=== PATIENT | male | born 1950 | race Caucasian/White ===

== ENCOUNTER 2024-11-24 14:55 | Outpatient (REF) | payer MEDICARE, SELFPAY ==
--- OUTSIDE RECORDS SUMMARY | 2024-11-24 17:09 | XMS_ITS | Encounter Summary ---
Author Organization [facility] Address [address] [place] [address] Care Team Providers Care Mortgage Processing Clerk Name Role Phone Pcp, No Primary Care Provider Unavailabl e Carrier, Yael BHAKTA Unavailable [phone] Reason for Visit * Reason Comments Other Second Opinion Encounter Details Date Type Department Care Team ([facility] Contact Info) Description 04/26/2024 Telephone [facility] Urologic Surgery [address] [phone] Don Zhang MD [address] [address] Other (Second Opinion) Social History Tobacco Use Types Packs/Day Years Used Date Smoking Tobacco: Never Smokeless Tobacco: Never Alcohol Use Standard Drinks/Week Comments Yes 1 (1 standard drink = 0.6 oz pur e alcohol) 2x/week AUDIT-C Answer Date Recorded Q1: How often do you have a drink containing alc ohol? 2-3 times a week 12/10/2022 Q2: How many drinks containi ng alcohol do you have on a typical day when you are drinking? 1 or 2 12/10/2022 Q3: How often do you have si x or more drinks on one occasion? Never 12/10/2022 Overall Financial Resource Strain (CARDIA) Answe r Date Recorded How hard is it for you to pa y for the very basics like food, housing, medical care, and heating? Not hard at all 05/05/2023 PHQ-2 Answer Date Recorded PHQ-2 Total Score 0 01/01/2023 Hunger Vital Sign Answer Date Recorded Within the past 12 months, y ou worried that your food would run out before you got the money to buy more. Never true 05/05/20 23 Within the past 12 months, t he food you bought just didn't last and you didn't have money to get more. Never true 05/05/2023 PRAPARE - Transportation Answer Date Re corded In the past 12 months, has l ack of transportation kept you from medical appointments or from getting medications? No 04/18 In the past 12 months, has l ack of transportation kept you from meetings, work, or from getting things needed for daily living? No 05/05/2023 Housing Stability Vital Sign Answer Aditya e Recorded In the last 12 months, was t here a time when you were not able to pay the mortgage or rent on time? No 05/05/2023 In the last 12 months, how many places have you lived? 1 05/05/2023 In the last 12 months, was t here a time when you did not have a steady place to sleep or slept in a nursing home (including now)? No 05/05/2023 Sex and Gender Information Value Date Recorded Sex Assigned at Male 10/08/2022 11:43 AM EST Gender Identity Male 10/08/2022 11:43 AM EST Sexual Orientation Heterosexual (straight) 10/08 11:43 AM EST documented as of this encounter Miscellaneous Notes * Telephone Encounter - Nathaniel Hills - 04/26/2024 9:18 AM EDT Patient calling to see if he can set up a second opinion regarding his care of frequent UTIs He wasa patient of Tamar Tobars and Dr. Juarezs but has since moved to [place]. Scheduled him with Kelli Peralta in the [place] office on 04/29/24 at 12:30. He is going to have his current urologist send medical records to the [place] office. documented in this encounter Plan of Treatment Not on file documented as of this encounter Visit Diagnoses Not on filedocumented in this encounter Care Teams Mortgage Processing Clerk Relationship Specialty Start Date End Date Pcp, No [address] [place] [address] PCP - General 05/02/23 Carrier, LIVIA Conley [address] [address] Oncology Nurse Navigator 05/05/23 documented as of this encounter
--- OUTSIDE RECORDS SUMMARY | 2024-11-24 17:09 | XMS_ITS | Encounter Summary ---
Author Organization [facility] Address [address] [place] [address] Care Team Providers Care Pattern Painter Name Role Phone Stalin Dupree MD Primary Care Provider [phone] Pcp, No Primary Care Provider Unavailabl Yael Fregoso RN Unavailable [phone] Encounter Details Date Type Department Care Team (Late st Contact Info) Description 07/09/2022 Scanned Document [address] [phone] Stalin Dupree MD [address] [place] [address] Social History Tobacco Use Types Packs/Day Years Used Date Smoking Tobacco: Never Assessed Sex and Gender Information Value Date Recorded Sex Assigned at Male 10/08/2022 11:43 AM EST Gender Identity Male 10/08/2022 11:43 AM EST Sexual Orientation Heterosexual (straight) 10/08 11:43 AM EST documented as of this encounter Plan of Treatment Not on file documented as of this encounter Visit Diagnoses Not on filedocumented in this encounter Care Teams Pattern Painter Relationship Specialty Start Date End Date Stalin Dupree MD [address] [place] [address] PCP - General Internal Medicine 08/15/22 05/01/23 Pcp, No [address] [place] [address] PCP - General 05/02/23 Yael Islas RN [address] [address] Oncology Nurse Navigator 05/05/23 documented as of this encounter
--- OUTSIDE RECORDS SUMMARY | 2024-11-24 17:09 | XMS_ITS | Clinical Summary ---
Author Organization [facility] Address [address] [place] [address] Phone Care Team Providers Care Door To Door Selling Agent Name Role Phone Nathaniel Yin MD Primary Care Provider [phone] Allergies Active Allergy Reactions Criticality Noted Date Comments Atorvastatin Liver function tests abnormal Medium 07/28/2024 Milk Containing Products (Dairy) Low 07/28/2024 Medications aspirin 81 mg EC tablet Take 1 tablet (81 mg total) by mouth 1 (one) time each day. 11/08/2022 Active metoprolol succinate (TOPROL-XL) 25 mg 24 hr tablet Take 1 tablet (25 mg total) by mouth 1 (one) time each day. 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 Gross hematuria 07/27/2024 Idiopathic hydronephrosis 07/27/2024 Nephrolithiasis 07/27/2024 Prostate cancer 01/01/2023 Encounters Date Type Department Care Team Description 09/22/2024 Telephone [facility] [address] [place] [phone] Nathaniel Alba MD watchman/ blood thinner (Watchman/ blood thinner ) 09/17/2024 8:00 AM EST Office Visit [facility] [address] [place] [address] José Russell PA Irradiation cystitis with hematuria (Primary Dx); Prostate cancer ([facility]) 09/16/2024 8:00 AM EST Office Visit [facility] [address] [place] [phone] Carlos La MD Irradiation cystitis with hematuria (Primary Dx); Prostate cancer ([facility]) 09/15/2024 8:00 AM EST Office Visit [facility] [address] [place] [phone] José Russell PA Irradiation cystitis with hematuria (Primary Dx); Prostate cancer ([facility]) 09/14/2024 8:00 AM EST Office Visit [facility] [address] [place] [phone] José Russell PA Irradiation cystitis with hematuria (Primary Dx); Prostate cancer ([facility]) 09/13/2024 8:00 AM EST Office Visit [facility] [address] [place] [phone] Carlos La MD Irradiation cystitis with hematuria (Primary Dx); Prostate cancer ([facility]) 09/10/2024 8:00 AM EST Office Visit [facility] [address] [place] [phone] José Russell PA Irradiation cystitis with hematuria (Primary Dx); Prostate cancer ([facility]) 09/09/2024 8:00 AM EST Office Visit [facility] [address] [place] [phone] José Russell PA Irradiation cystitis with hematuria (Primary Dx); Prostate cancer ([facility]) 09/08/2024 8:00 AM EST Office Visit [facility] [address] [place] [phone] José Russell PA Irradiation cystitis with hematuria (Primary Dx); Prostate cancer ([facility]) 09/07/2024 8:00 AM EST Office Visit [facility] [address] [place] [phone] José Russell PA Irradiation cystitis with hematuria (Primary Dx); Prostate cancer ([facility]) 09/06/2024 8:00 AM EST Office Visit [facility] [address] [place] [phone] José Russell PA Irradiation cystitis with hematuria (Primary Dx); Prostate cancer ([facility]) 09/03/2024 8:00 AM EST Office Visit [facility] [address] [place] [phone] Carlos La MD Irradiation cystitis with hematuria (Primary Dx); Prostate cancer ([facility]) 09/02/2024 8:00 AM EST Office Visit [facility] [address] [place] [phone] Carlos La MD Irradiation cystitis with hematuria (Primary Dx); Prostate cancer ([facility]) 09/01/2024 8:00 AM EST Office Visit [facility] [address] [place] [phone] José Russell PA Irradiation cystitis with hematuria (Primary Dx); Prostate cancer ([facility]) 08/31/2024 8:00 AM EST Office Visit [facility] [address] [place] [phone] José Russell PA Irradiation cystitis with hematuria (Primary Dx); Prostate cancer ([facility]) 08/30/2024 8:00 AM EST Office Visit [facility] [address] [place] [phone] José Russell PA Irradiation cystitis with hematuria (Primary Dx); Prostate cancer ([facility]) 08/27/2024 8:00 AM EST Office Visit [facility] [address] [place] [phone] José Russell PA Irradiation cystitis with hematuria (Primary Dx); Prostate cancer ([facility]) 08/26/2024 8:00 AM EST Office Visit [facility] [address] [place] [address] José Russell PA Irradiation cystitis with hematuria (Primary Dx); Prostate cancer ([facility]) from Last 3 Months Surgical History Surgery Date Site/Laterality Comments MITRAL VALVE REPLACEMENT repair per pt from prolaps PROSTATECTOMY LITHOTRIPSY CYSTOSCOPY W/ URETERAL STENT PLACEMENT Medical History Medical History Date Comments CKD (chronic kidney disease) DX: CKD (chronic kidney disease) Adhd DX:ADHD Coronary artery disease 07/27/2024 Heart valve disease 07/27/2024 Hypertension 07/27/2024 Raynaud's syndrome 07/27/2024 Chronic kidney disease 07/27/2024 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 Gross hematuria 07/27/2024 Hydronephrosis with ureteral stricture Nephrolithiasis 07/27/2024 Prostate cancer ([facility]) Social History Tobacco Use Types Packs/Day Years Used Date Smoking Tobacco: Never Smokeless Tobacco: Never Alcohol Use Standard Drinks/Week Comments Not Currently 0 (1 standard drink = 0.6 oz pur e alcohol) Sex and Gender Information Value Date Recorded Sex Assigned at Not on file Legal Sex Male 11:18 PM EST Gender Identity Not on file Sexual Orientation Not on file Obstetrics History Last Filed Vital Signs Vital Sign Reading Time Taken Comments Blood Pressure 139/77 07/28/2024 9:39 AM EST Pulse 75 07/28/2024 9:39 AM EST Temperature 36.8 ??C (98.2 ??F) 07/28/2024 9:39 AM ES T Respiratory Rate 16 07/28/2024 9:39 AM EST Oxygen Saturation 100% 07/28/2024 9:39 AM EST Inhaled Oxygen Concentration - - Weight 68 kg (150 lb) 07/28/2024 9:39 AM EST Height 172.7 cm (5' 8 ) 07/28/2024 9:39 AM EST Body Mass Index 22.81 07/28/2024 9:39 AM EST Plan of Treatment Upcoming Encounters Date Type Department Care Team (Late st Contact Info) Description 12/21/2024 7:40 AM EDT Office Visit [facility] [address] [place] [phone] Belkis Diaz, SANDRA [address] [place] [address] [address] [place], [place] [phone] 07/30/2025 Telephone [facility] [address] [place] [address] Nathaniel Yin MD [address] [place] [address] [address] [place] [address] Medical Records Health Maintenance Due Date Last Done Comments Pneumococcal Vaccine: 50+ Years (1 of 2 - PCV) 1969 Colorectal Cancer Screening: Colonoscopy 07/28/2022 Depression Screening 07/28/2022 Hepatitis C Screening 07/28/2022 Medicare Annual Wellness Visit 07/28/2022 Social Influencers of Health Screening 07/28/2022 Hypertension/CHF/CAD Annual BMP Blood Test 01/03/2024 01/02/2023, 12/17/2022 Cholesterol Screening (Lipid Panel) 05/24/2024 05/24/2019 Falls Risk Assessment 07/28/2025 07/28/2024 DTaP,Tdap,and Td Vaccines (3 - Td or Tdap) 01/11/2031 01/11/2021, 08/18/1999 Zoster Vaccines Completed 08/24/2018, 05/18/2018 RSV Immunization Adult Patients Completed 05/14/2023 COVID-19 Vaccine Completed 04/28/2024, , 05/01/2022, Additional history exists Influenza Vaccine Completed 04/28/2024, , 05/01/2022, Additional history exists HIB Vaccines Aged Out No longer eligi ble based on patient's age to complete this topic HPV Vaccines Aged Out No longer eligi ble based on patient's age to complete this topic Hepatitis A Vaccines Aged Out No long er eligible based on patient's age to complete this topic Hepatitis B Vaccines Aged Out No long er eligible based on patient's age to complete this topic IPV Vaccines Aged Out No longer eligi ble based on patient's age to complete this topic MMR Vaccines Aged Out No longer eligi ble based on patient's age to complete this topic Meningococcal ACWY Vaccine Aged Out N o longer eligible based on patient's age to complete this topic Meningococcal B Vaccine Aged Out No l onger eligible based on patient's age to complete this topic RSV Immunization Patients Under 20 months Aged Out No longer eligible based on patient's age to complete this topic Varicella Vaccines Aged Out No longer eligible based on patient's age to complete this topic Goals Goal Patient Goal Type Associated Problems Recent Progress Patient-Stated? Author Decrease Wound Volume by X% by date (in notes) Care Plan Impaired Tissue Anastasiia Brambila RN Patient and Caregiver Understand Wound Care Education Care Plan Impaired Tissue Anastasiia Brambila RN Wound volume breakdown reduced by X% by week 4 Care Plan Impaired Tissue Anastasiia Brambila RN Wound volume breakdown reduced by X% by week 8 Care Plan Impaired Tissue Anastasiia Brambila RN Wound volume breakdown reduced by X% by week 12 Care Plan Impaired Tissue Anastasiia Brambila RN Quit using tobacco (cigarettes, smokeless, etc) Care Plan Education needed on impact of smoking on wound Anastasiia Brambila RN Reduce tobacco use (cigarettes, smokeless, etc) Care Plan Education needed on impact of smoking on wound Anastasiia Brambila RN Decrease Wound Volume by X% by date (in notes) Care Plan Education needed on impact of smoking on wound Anastasiia Brambila RN Patient and Caregiver Understand Wound Care Education Care Plan Education needed related to ulceration/compr omised skin integrity. Anastasiia Brambila RN Patient will tolerate the hyperbaric oxygen therapy treatment Care Plan Anxiety related to feelings of confinement associated with the hyperbaric oxygen chamber Anastasiia Brambila RN Patient/caregiver verbalize understanding of HBO goals, rationale, and hazards Care Plan Anxiety related to knowledge deficit of hyperbaric oxygen therapy and treatment procedures Anasatsiia Brambila RN Patient will tolerate the internal climate of chamber Care Plan Discomfort related to temperature humidity changes inside hyperbaric chamber Anastasiia Brambila RN Prevention of barotraumas during HBO treatment Care Plan Potential for barotraumas to ears, sinuses, teeth, lungs or cerebral gas embolism related to changes in atmospheric pressure inside hyperbaric oxygen chamber Anastasiia Brambila RN Signs and symptoms of seizure will be recognized and promptly addressed. Seizing patients will suffer no harm Care Plan Potential for oxygen toxicity seizures related to delivery of 100% oxygen at an increase atmospheric pressure Anastasiia Brambila RN Signs and symptoms of seizure will be recognized and promptly addressed. Seizing patients will suffer no harm Care Plan Potential for pulmonary oxygen toxicity related to delivery of 100% oxygen at an increased atmospheric pressure No Anastasiia Boone RN Procedures Procedure Name Priority Date/Time Associated Diagnosis Comments POCT GLUCOSE BLOOD Routine 08/30/2024 11 :09 AM EST from Last 3 Months Results * (ABNORMAL) POCT Glucose, blood (08/30/2024 11:09 AM EST) [facility] Signature Glucose POCT 177(H) 70 - 100 mg/dL 08/30/2024 11:10 AM EST [facility] Blood Capillary blood specimen / Unknown 08/30/2024 11:09 AM EST 08/30/2024 2:39 PM EST us José DONATO LAB POINT OF CARE T EST DOCKED DEVICE UNSOLICITED RESULTS Final Result [facility] [address] [place] [address], [place] [phone] from Last 3 Months Additional Health Concerns Active Problems Noted Date Diagnosed Date Impaired Tissue 07/28/2024 Education needed on impact of smoking on wound 1 09/28/2023 Education needed related to ulceration/compromised skin integrity. 07/28/2024 Anxiety related to feelings of confinement associated with the hyperbaric oxygen chamber 07/28/2024 Anxiety related to knowledge deficit of hyperbaric oxygen therapy and treatment procedures 07/28/2024 Discomfort related to temper ature humidity changes inside hyperbaric chamber 07/28/2024 Potential for barotraumas to ears, sinuses, teeth, lungs or cerebral gas embolism related to changes in atmospheric pressure inside hyperbaric oxygen chamber 07/28/2024 Potential for oxygen toxicit y seizures related to delivery of 100% oxygen at an increase atmospheric pressure 07/28/2024 Potential for pulmonary oxyg en toxicity related to delivery of 100% oxygen at an increased atmospheric pressure 07/28/2024 Insurance [employer] Care Teams Door To Door Selling Agent Relationship Specialty Start Date End Date Nathaniel Yin MD [address] [place] [address] [address] [place] [phone] PCP - General Internal Medicine 08/04/24
--- OUTSIDE RECORDS SUMMARY | 2024-11-24 17:09 | XMS_ITS | Encounter Summary ---
Author Organization [facility] Address [address] [place] [address] Care Team Providers Care Global Sourcing Manager Name Role Phone Pcp, No Primary Care Provider Unavailabl e Carrier, Yael BHAKTA Unavailable [phone] Encounter Details Date Type Department Care Team ([facility] st Contact Info) Description 05/29/2023 Scanned Document [facility] Urologic Surgery [place] [address] [address] Jyotsna Barrios MD [address] [place] [phone] Social History Tobacco Use Types Packs/Day Years [...] money to buy more. Never true 05/05/20 Within the past 12 months, t he [...] place to sleep or slept in a alf (including now)? No 05/05/2023 Sex and Gender Information Value Date Recorded Sex Assigned at Male 10/08/2022 11:43 AM EST Gender Identity Male 10/08/2022 11:43 AM EST Sexual Orientation Heterosexual (straight) 10/08 11:43 AM EST documented as of this encounter Plan of Treatment Not on file documented as of this encounter Visit Diagnoses Not on filedocumented in this encounter Care Teams Global Sourcing Manager Relationship Specialty Start Date End Date Pcp, No [address] [place] [address] PCP - General 05/02/23 Yael Islas RN [address] [address] Oncology Nurse Navigator 05/05/23 documented as of this encounter
--- OUTSIDE RECORDS SUMMARY | 2024-11-24 17:09 | XMS_ITS | Encounter Summary ---
Author Organization [facility] Address [address] [place] [address] Care Team Providers Care Senior Warehouse Clerk Name Role Phone Stalin Dupree MD Primary Care Provider [phone] Pcp, No Primary Care Provider Unavailabl e Yael Islas RN Unavailable [phone] Encounter Details Date Type Department Care Team (Late st Contact Info) Description 07/09/2022 Scanned Document [facility] [place] Urologic Surgery [address] [address] Stalin Dupree MD [address] [place] [phone] Social History Tobacco Use Types Packs/Day Years [...] on filedocumented in this encounter Care Teams Senior Warehouse Clerk Relationship Specialty Start Date End Date Stalin Dupree MD [address] [place] [address] PCP - General Internal Medicine 08/15/22 05/01/23 Pcp, No [address] [place] [address] PCP - General 05/02/23 Yael Islas RN [address] [address] Oncology Nurse Navigator 05/05/23 documented as of this encounter
--- OUTSIDE RECORDS SUMMARY | 2024-11-24 17:09 | XMS_ITS | Clinical Summary ---
Author Organization [facility] Address [address] [place] [address] Care Team Providers Care Record Keeper Name Role Phone Unavailable Primary Care Provider Unavailabl e Social History Tobacco Use Types Packs/Day Years Used Date Smoking Tobacco: Never Assessed Sex and Gender Information Value Date Recorded Sex Assigned at Not on file Gender Identity Not on file Sexual Orientation Not on file Plan of Treatment Health Maintenance Due Date Last Done Comments Hepatitis C Screening 1950 COVID-19 Vaccine (#1) [birth year]20/1951 Depression Screening 1962 Preventative Health Evaluation 1968 DTap / Tdap / Td (1 - Tdap) 1969 Colon Cancer Screening (Colonoscopy) 12/19/1995 Shingrix-Zoster Vaccine (1 of 2) 2000 Fall Risk Assessment 12/19/2015 Pneumococcal Vaccine (1 of 1 - PCV) 12/19/2015 Influenza Vaccine (#1) 2024 RSV Adult > 60+ Yrs or Pregn ant (1 - 1-dose 75+ series) 2025 Hepatitis B Vaccines Aged Out No long er eligible based on patient's age to complete this topic RSV Ped < 20 months Aged Out No longe r eligible based on patient's age to complete this topic
--- OUTSIDE RECORDS SUMMARY | 2024-11-24 17:09 | XMS_ITS | Encounter Summary ---
Author Organization [facility] Address [address] [place] [address] Care Team Providers Care Queen Producer Name Role Phone Stalin Dupree MD Primary Care Provider [phone] Pcp, No Primary Care Provider Unavailabl e Yael Islas RN Unavailable [phone] Encounter Details Date Type Department Care Team (Late st Contact Info) Description 06/04/2022 Scanned Document [facility] Urologic Surgery [address] [address] Stalin Dupree MD [address] [place] [phone] Social History Tobacco Use Types Packs/Day Years [...] on filedocumented in this encounter Care Teams Queen Producer Relationship Specialty Start Date End Date Stalin Dupree MD [address] [place] [phone] PCP - General Internal Medicine 08/15/22 05/01/23 Pcp, No [address] [place] [address] PCP - General 05/02/23 Yael Islas RN [address] [address] Oncology Nurse Navigator 05/05/23 documented as of this encounter
--- OUTSIDE RECORDS SUMMARY | 2024-11-24 17:09 | XMS_ITS ---
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 Past Plans No past plan information found. Radiation Treatments * No radiation treatments are documented for this patient in [facility]. Treatments may have been administered in another system. Lifetime Dose Tracking * Chemical Lifetime Dose Automatic Entry Manual Entr y Fluoro Time 0.1 minutes 0.1 minutes 0 minutes Air Kerma 1 mGy 1 mGy 0 mGy
--- OUTSIDE RECORDS SUMMARY | 2024-11-24 17:09 | XMS_ITS | Encounter Summary ---
Author Organization [facility] Address [address] [place] [address] Care Team Providers Care Polysom Tech Name Role Phone Stalin Dupree MD Primary Care Provider [phone] Pcp, No Primary Care Provider Unavailabl e Yael Islas RN Unavailable [phone] Encounter Details Date Type Department Care Team (Late st Contact Info) Description 08/09/2022 Scanned Document [facility] Urologic Surgery [address] [place] [phone] Arnaud Cho MD [address] [facility] [address] [place] [address] Social History Tobacco Use Types Packs/Day Years [...] on filedocumented in this encounter Care Teams Polysom Tech Relationship Specialty Start Date End Date Stalin Dupree MD [address] [place] [address] PCP - General Internal Medicine 08/15/22 05/01/23 Pcp, No [address] [place] [address] PCP - General 05/02/23 Yael Islas RN [address] [address] Oncology Nurse Navigator 05/05/23 documented as of this encounter
--- OUTSIDE RECORDS SUMMARY | 2024-11-24 17:09 | XMS_ITS | Clinical Summary ---
Author Organization [facility] Address [address] [place] [address] Care Team Providers Care Financial Systems Manager Name Role Phone Pcp, No Primary Care Provider Unavailabl e Carrier, Yael BHAKTA Unavailable [phone] Allergies No known active allergies Medications Medication Sig Dispensed Refills Start Date End Date Status docusate sodium (COLACE) 100 MG capsuleIndications:P rostate cancer (HCC) Take 1 capsule (100 mg total) by mouth 2 (two) times a day as needed for constipation. 60 capsule 01/02/2023 Active magnesium oxide 400 (240 Mg) MG Tab tablet Take 1 tablet (400 mg total) by mouth daily. Take 2 hours apart from other medications; take with food Active ciprofloxacin (CIPRO) 500 MG/5ML (10%) suspension Take by mouth 2 (two) times a day. Active metoPROLOL SUCCINATE (TOPROL-XL) 50 MG 24 hr tablet Take 1 tablet (50 mg total) by mouth daily. Active apixaban (ELIQUIS) 5 MG tablet Take 1 tablet (5 mg total) by mouth 2 (two) times a day. Active Active Problems Problem Noted Date Diagnosed Date Prostate cancer 01/01/2023 Hypertension Assessment & Plan (12/17/2022 11:43 AM EDT): BP Today: 124/60. Well-controlled by lifestyle and medication. Continue current medication regimen as prescribed. Patient to follow up with provider for continued management of HTN as previously directed. History of kidney stones Assessment & Plan (12/17/2022 11:45 AM EDT): Patient reports he has a low grade ache on his left flank which he discussed with his urologist but at this time there will not be further evaluation and intervention. Patient reports a history of kidney stones every two to three years. Patient is currently not taking any medications or supplements for this. Patient is followed by Dr. Arnaud Liu with urology. History of mitral valve prolapse Assessment & Plan (12/17/2022 11:48 AM EDT): Patient reports he underwent MVP repair at [facility] in 2004. Patient reports occasional swelling in his lower extremities mostly noted in the evening and was previously told this is related to his Amlodipine. Patient denies shortness of breath and/or dyspnea on exertion. Patient is followed by Dr. Shanks with cardiology. Other hyperlipidemia Assessment & Plan (12/17/2022 11:56 AM EDT): Patient reports that he was told he has some plaque in one of his arteries noted on a LHC. Patient did not tolerate statin therapy. Statin precipitate elevated LFT's requiring patient to under go a liver biopsy which proved it was in relation to statin therapy. Patient did try red yeast rice but didn't tolerate due to night sweats. Patient denies chest pain, SOB, and GREGORIO. Patient to follow up with their provider for continued management of HLD as previously directed. Will obtain most recent EKG and note from cardiology and will request risk stratification. Family History Medical History Relation Name Comments Alcohol abuse Father Heart attack Father Post-traumatic stress disorder Father Tobacco Use Father Alzheimer's disease Mother Relation Name Status Comments Father Mother Social History Tobacco Use Types Packs/Day Years Used Date Smoking Tobacco: Never Smokeless Tobacco: Never Tobacco Cessation:Counseling Given: Not Answered Alcohol Use Standard Drinks/Week Comments Yes 1 [...] place to sleep or slept in a care home (including now)? No 05/05/2023 Sex and Gender Information Value Date Recorded Sex Assigned at Male 10/08/2022 11:43 AM EST Gender Identity Male 10/08/2022 11:43 AM EST Sexual Orientation Heterosexual (straight) 10/08 11:43 AM EST Last Filed Vital Signs Vital Sign Reading Time Taken Comments Blood Pressure 124/54 01/09/2023 10:04 AM EDT Pulse 73 01/17/2023 9:55 AM EDT Temperature 37.7 ??C (99.9 ??F) 01/02/2023 7:54 AM ED T Respiratory Rate 18 01/09/2023 10:04 AM EDT Oxygen Saturation 99% 01/17/2023 9:55 AM EDT Inhaled Oxygen Concentration - - Weight 70.3 kg (155 lb) 04/29/2024 12:17 PM EDT per pt Height 172.7 cm (5' 8 ) 04/29/2024 12:17 PM EDT per pt Body Mass Index 23.57 04/29/2024 12:17 PM EDT Plan of Treatment Health Maintenance Due Date Last Done Comments Hepatitis C Virus Screening 1950 COVID-19 Vaccine (#1) 12/19/1955 DTaP/Tdap/Td Vaccines (1 - Tdap) 1969 Pneumococcal Vaccines 50+ (1 of 2 - PCV) 1969 Zoster (Shingles) Vaccine (1 of 2) 1969 Colonoscopy 12/19/1995 RSV Vaccine 60 years and old er and Patients (1 - Risk 60-74 years 1-dose series) 2010 Influenza Vaccine 03/18/2024 08/26/2005 Hepatitis B Vaccines Aged Out No long er eligible based on patient's age to complete this topic Advance Directives * Full Code (Latest Code Status on File) Date Activated Date Inactivated Comments 01/01/2023 2:24 PM * Full Code Date Activated Date Inactivated Comments 01/01/2023 6:51 AM 01/01/2023 2:24 PM Care Teams Financial Systems Manager Relationship Specialty Start Date End Date Pcp, No [address] [place] [address] PCP - General 05/02/23 Yael Islas, LIVIA [address] [address] Oncology Nurse Navigator 05/05/23
--- OUTSIDE RECORDS SUMMARY | 2024-11-24 17:09 | XMS_ITS | Encounter Summary ---
Author Organization [facility] Address [address] [place] [address] Care Team Providers Care Engineering Leader Name Role Phone Stalin Dupree MD Primary Care Provider [phone] Pcp, No Primary Care Provider Unavailabl e Yael Islas RN Unavailable [phone] Encounter Details Date Type Department Care Team (Late st Contact Info) Description 03/27/[address] [facility] Urologic Surgery [address] [id number] Stalin Dupree MD [address] [place] [id number] Social History Tobacco Use Types Packs/Day Years [...] on filedocumented in this encounter Care Teams Engineering Leader Relationship Specialty Start Date End Date Stalin Dupere MD [address] [place] [address] PCP - General Internal Medicine 08/15/22 05/01/23 Pcp, No [address] [place] [address] PCP - General 05/02/23 Yael Islas RN [address] [address] Oncology Nurse Navigator 05/05/23 documented as of this encounter
--- OUTSIDE RECORDS SUMMARY | 2024-11-24 17:09 | XMS_ITS | Encounter Summary ---
Author Organization [facility] Address [address] [place] [address] Care Team Providers Care Arcgis Developer Name Role Phone Stalin Dupree MD Primary Care Provider [phone] Pcp, No Primary Care Provider Unavailabl e Yael Islas RN Unavailable [phone] Encounter Details Date Type Department Care Team (Late st Contact Info) Description 05/06/2022 Scanned Document [facility] Urologic Surgery [address] [id number] Stalin Dupree MD [address] [place] [id number] Social History Tobacco Use Types Packs/Day Years [...] on filedocumented in this encounter Care Teams Arcgis Developer Relationship Specialty Start Date End Date Stalin Dupree MD [address] [place] [address] PCP - General Internal Medicine 08/15/22 05/01/23 Pcp, No [address] [place] [address] PCP - General 05/02/23 Yael Islas RN [address] [address] Oncology Nurse Navigator 05/05/23 documented as of this encounter
--- OUTSIDE RECORDS SUMMARY | 2024-11-24 17:09 | XMS_ITS | Encounter Summary ---
Author Organization [facility] Address [address] [place] [address] Care Team Providers Care Hoisting Pile Driving Engineer Name Role Phone Stalin Dupree MD Primary Care Provider [phone] Pcp, No Primary Care Provider Unavailabl e Carrier, Yael BHAKTA Unavailable [phone] Reason for Visit * Reason Comments Medical Complaint Encounter Details Date Type Department Care Team ([facility] Contact Info) Description 01/14/[address] [facility] Urologic Surgery [address] [id number] Don Zhang MD [address] [place] [address] Medical Complaint Social History Tobacco Use Types Packs/Day Years [...] care, and heating? Not hard at all 01/02/2023 PHQ-2 Answer Date Recorded PHQ-2 Total Score 0 01/01/2023 Hunger Vital Sign Answer Date Recorded Within the past 12 months, y ou worried that your food would run out before you got the money to buy more. Never true 01/03/20 23 Within the past 12 months, t he food you bought just didn't last and you didn't have money to get more. Never true 01/02/2023 PRAPARE - Transportation Answer Date Re corded In the past 12 months, has l ack of transportation kept you from medical appointments or from getting medications? No 12/16 In the past 12 months, has l ack of transportation kept you from meetings, work, or from getting things needed for daily living? No 01/02/2023 Housing Stability Vital Sign Answer Aditya e Recorded In the last 12 months, was t here a time when you were not able to pay the mortgage or rent on time? No 01/02/2023 In the last 12 months, how many places have you lived? 1 01/02/2023 In the last 12 months, was t here a time when you did not have a steady place to sleep or slept in a longterm (including now)? No 01/02/2023 Sex and Gender Information Value Date Recorded Sex Assigned at Male 10/08/2022 11:43 AM EST Gender Identity Male 10/08/2022 11:43 AM EST Sexual Orientation Heterosexual (straight) 10/08 11:43 AM EST COVID-19 Exposure Response Date Recorded In the last 10 days, have yo u been in contact with someone who was confirmed or suspected to have Coronavirus/COVID-19? No / Unsure 01/17/2023 9:54 AM EDT documented as of this encounter Miscellaneous Notes * Telephone Encounter - Zachary Mixon RN - 01/16/2023 10:06 AM EDT Krystin made Pt aware that he should measure the volumes of output collecting in his stoma bag. Please see alternate TE * Telephone Encounter - Don Zhang MD - 01/14/2023 1:02 PM EDT Got it, thanks. Any abdominal distension? 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 Provider made aware documented in this encounter Plan of Treatment Not on file documented as of this encounter Visit Diagnoses Not on filedocumented in this encounter Care Teams Hoisting Pile Driving Engineer Relationship Specialty Start Date End Date Stalin Dupree MD [address] [place] [address] PCP - General Internal Medicine 08/15/22 05/01/23 Pcp, No [address] [place] [address] PCP - General 05/02/23 Yael Islas RN [address] [address] Oncology Nurse Navigator 05/05/23 documented as of this encounter
--- OUTSIDE RECORDS SUMMARY | 2024-11-24 17:09 | XMS_ITS | Encounter Summary ---
Author Organization [facility] Address [address] [place] [address] Care Team Providers Care Generating Plant Superintendent Name Role Phone Stalin Dupree MD Primary Care Provider Pcp, No Primary Care Provider Unavailabl e Yael Islas RN Unavailable [phone] Encounter Details Date Type Department Care Team (Late st Contact Info) Description 05/23/2022 Scanned Document [facility] Urologic Surgery [address] [phone] Stalin Dupree MD [address] [place] [address] Social History Tobacco Use Types Packs/Day Years [...] on filedocumented in this encounter Care Teams Generating Plant Superintendent Relationship Specialty Start Date End Date Stalin Dupree MD [address] [place] [address] PCP - General Internal Medicine 08/15/22 05/01/23 Pcp, No [address] [place] [address] PCP - General 05/02/23 Yael Islas RN [address] [address] Oncology Nurse Navigator 05/05/23 documented as of this encounter
--- OUTSIDE RECORDS SUMMARY | 2024-11-24 17:09 | XMS_ITS ---
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 Author Decrease Wound Volume by X% by date (in notes) Care Plan Impaired Tissue Anastasiia Brambila RN Patient and Caregiver Understand Wound Care Education Care Plan Impaired Tissue Anastasiia Brambila RN Wound volume breakdown reduced by X% by week 4 Care Plan Impaired Tissue Anastasiia Bramibla RN Wound volume breakdown reduced by X% [...] of hyperbaric oxygen therapy and treatment procedures Anastasiia Brambila RN Patient will tolerate the internal [...] 100% oxygen at an increased atmospheric pressure Anastasiia Brambila RN Interventions Care Plan Interventions Intervention Entry Date Outcome Assess for signs and symptoms related to adverse events, including but not limited to confinement anxiety, pneumothorax, oxygen toxicity and barotrauma 07/28/2024 Administer the correct therapeutic gas delivery based on patient's needs and limitations, per physician order 07/28/2024 Administer a ten (10) minute air break for patient if signs and symptoms of seizure appear and notify the hyperbaric physician 07/28/2024 Administer a five (5) minute air break for patient signs and symptoms of seizure appear and notify the hyperbaric physician 07/28/2024 Assess for signs and symptoms related to adverse events, including but not limited to confinement anxiety, pneumothorax, oxygen toxicity and barotrauma 07/28/2024 Administer the correct therapeutic gas delivery based on patient's needs and limitations, per physician order 07/28/2024 Administer a ten (10) minute air break for patient if signs and symptoms of seizure appear and notify the hyperbaric physician 07/28/2024 Administer a five (5) minute air break for patient signs and symptoms of seizure appear and notify the hyperbaric physician 07/28/2024 Implement protocols to decrease risk of pneumothorax in high risk patients 07/28/2024 Administer decongestants, per physician orders, prior to HBO 07/28/2024 Assess patient's knowledge and expectations regarding hyperbaric medicine and provide education related to the hyperbaric environment, goals of treatment and prevention of adverse events 07/28/2024 Assess for signs and symptoms related to adverse events, including but not limited to confinement anxiety, pneumothorax, oxygen toxicity and barotrauma 07/28/2024 Administer the correct therapeutic gas delivery based on patient's needs and limitations, per physician order 07/28/2024 Assess and provide for patient's comfort related to hyperbaric environment and equalization of middle ear 07/28/2024 Assess for signs and symptoms related to adverse events, including but not limited to confinement anxiety, pneumothorax, oxygen toxicity and barotrauma 07/28/2024 Assess patient's knowledge and expectations regarding hyperbaric medicine and provide education related to the hyperbaric environment, goals of treatment and prevention of adverse events 07/28/2024 Assess patient for any history of confinement anxiety 07/28/2024 Assess for signs and symptoms related to adverse events, including but not limited to confinement anxiety, pneumothorax, oxygen toxicity and barotrauma 07/28/2024 Provide caregiver with wound care procedure information 07/28/2024 Educate caregiver on proper wound care procedures 07/28/2024 Give provider list of wound care supplies 07/28/2024 Refill wound care supplies 07/28/2024 Send Wound Care Supplies 07/28/2024 Give provider list of wound care supplies 07/28/2024 Refill wound care supplies 07/28/2024 Send Wound Care Supplies 07/28/2024 Provide caregiver with wound care procedure information 07/28/2024 Educate caregiver on proper wound care procedures 07/28/2024 Document patient eligibility for HBO 07/28/2024 Assess patient for HBO treatment 07/28/2024 Record wound depth 07/28/2024 Record total wound area 07/28/2024 Measure wound progress 07/28/2024 Create an action plan identifying patient strengths and supports 07/28/2024 Establish quit date with patient 07/28/2024 Discuss prior cessation attempts 07/28/2024 Discuss preferred method of cessation and plan 07/28/2024 Discuss barriers to smoking cessation 07/28/2024 Discuss smoking status with patient 07/28/2024 Create an action plan identifying patient strengths and supports 07/28/2024 Establish quit date with patient 07/28/2024 Discuss prior cessation attempts 07/28/2024 Discuss preferred method of cessation and plan 07/28/2024 Discuss barriers to smoking cessation 07/28/2024 Discuss smoking status with patient 07/28/2024 Provide caregiver with wound care procedure information 07/28/2024 Educate caregiver on proper wound care procedures 07/28/2024 Document patient eligibility for HBO 07/28/2024 Assess patient for HBO treatment 07/28/2024 Record wound depth 07/28/2024 Record total wound area 07/28/2024 Measure wound progress 07/28/2024 Provide caregiver with wound care procedure information 07/28/2024 Educate caregiver on proper wound care procedures 07/28/2024 Document patient eligibility for HBO 07/28/2024 Assess patient for HBO treatment 07/28/2024 Record wound depth 07/28/2024 Record total wound area 07/28/2024 Measure wound progress 07/28/2024 Provide caregiver with wound care procedure information 07/28/2024 Educate caregiver on proper wound care procedures 07/28/2024 Document patient eligibility for HBO 07/28/2024 Assess patient for HBO treatment 07/28/2024 Record wound depth 07/28/2024 Record total wound area 07/28/2024 Measure wound progress 07/28/2024 Provide caregiver with wound care procedure information 07/28/2024 Educate caregiver on proper wound care procedures 07/28/2024 Give provider list of wound care supplies 07/28/2024 Refill wound care supplies 07/28/2024 Send Wound Care Supplies 07/28/2024 Give provider list of wound care supplies 07/28/2024 Refill wound care supplies 07/28/2024 Send Wound Care Supplies 07/28/2024 Provide caregiver with wound care procedure information 07/28/2024 Educate caregiver on proper wound care procedures 07/28/2024 Document patient eligibility for HBO 07/28/2024 Assess patient for HBO treatment 07/28/2024 Record wound depth 07/28/2024 Record total wound area 07/28/2024 Measure wound progress 07/28/2024 Related Goals and Interventions Goal Associated Intervent ions Decrease Wound Volume by X% by date (in notes) Give provider list of wound care supplie s; Refill wound care supplies; Send Wound Care Supplies; Provide caregiver with wound care procedure information; Educate caregiver on proper wound care procedures; Document patient eligibility for HBO; Assess patient for HBO treatment; Record wound depth; Record total wound area; Measure wound progress Patient and Caregiver Unders tand Wound Care Education Provide caregiver with wound care procedure information; Educate caregiver on proper wound care procedures; Give provider list of wound care supplies; Refill wound care supplies; Send Wound Care Supplies Wound volume breakdown reduc ed by X% by week 4 Provide caregiver with wound care procedure information; Educate caregiver on proper wound care procedures; Document patient eligibility for HBO; Assess patient for HBO treatment; Record wound depth; Record total wound area; Measure wound progress Wound volume breakdown reduc ed by X% by week 8 Provide caregiver with wound care procedure information; Educate caregiver on proper wound care procedures; Document patient eligibility for HBO; Assess patient for HBO treatment; Record wound depth; Record total wound area; Measure wound progress Wound volume breakdown reduc ed by X% by week 12 Provide caregiver with wound care procedure information; Educate caregiver on proper wound care procedures; Document patient eligibility for HBO; Assess patient for HBO treatment; Record wound depth; Record total wound area; Measure wound progress Quit using tobacco (cigarett es, smokeless, etc) Create an action plan identifying patien t strengths and supports; Establish quit date with patient; Discuss prior cessation attempts; Discuss preferred method of cessation and plan; Discuss barriers to smoking cessation; Discuss smoking status with patient Reduce tobacco use (cigarett es, smokeless, etc) Create an action plan identifying patien t strengths and supports; Establish quit date with patient; Discuss prior cessation attempts; Discuss preferred method of cessation and plan; Discuss barriers to smoking cessation; Discuss smoking status with patient Decrease Wound Volume by X% by date (in notes) Give provider list of wound care supplie s; Refill wound care supplies; Send Wound Care Supplies; Provide caregiver with wound care procedure information; Educate caregiver on proper wound care procedures; Document patient eligibility for HBO; Assess patient for HBO treatment; Record wound depth; Record total wound area; Measure wound progress Patient and Caregiver Unders tand Wound Care Education Provide caregiver with wound care procedure information; Educate caregiver on proper wound care procedures; Give provider list of wound care supplies; Refill wound care supplies; Send Wound Care Supplies Patient will tolerate the hy perbaric oxygen therapy treatment Assess patient for any history of confinement anxiety; Assess for signs and symptoms related to adverse events, including but not limited to confinement anxiety, pneumothorax, oxygen toxicity and barotrauma Patient/caregiver verbalize understanding of HBO goals, rationale, and hazards Assess for signs and symptoms related to adverse events, including but not limited to confinement anxiety, pneumothorax, oxygen toxicity and barotrauma; Assess patient's knowledge and expectations regarding hyperbaric medicine and provide education related to the hyperbaric environment, goals of treatment and prevention of adverse events Patient will tolerate the in ternal climate of chamber Assess and provide for patient's comfort related to hyperbaric environment and equalization of middle ear Prevention of barotraumas du ring HBO treatment Implement protocols to decrease risk of pneumothorax in high risk patients; Administer decongestants, per physician orders, prior to HBO; Assess patient's knowledge and expectations regarding hyperbaric medicine and provide education related to the hyperbaric environment, goals of treatment and prevention of adverse events; Assess for signs and symptoms related to adverse events, including but not limited to confinement anxiety, pneumothorax, oxygen toxicity and barotrauma; Administer the correct therapeutic gas delivery based on patient's needs and limitations, per physician order Signs and symptoms of seizur e will be recognized and promptly addressed. Seizing patients will suffer no harm Assess for signs and symptoms related to adverse events, including but not limited to confinement anxiety, pneumothorax, oxygen toxicity and barotrauma; Administer the correct therapeutic gas delivery based on patient's needs and limitations, per physician order; Administer a ten (10) minute air break for patient if signs and symptoms of seizure appear and notify the hyperbaric physician; Administer a five (5) minute air break for patient signs and symptoms of seizure appear and notify the hyperbaric physician Signs and symptoms of seizur e will be recognized and promptly addressed. Seizing patients will suffer no harm Assess for signs and symptoms related to adverse events, including but not limited to confinement anxiety, pneumothorax, oxygen toxicity and barotrauma; Administer the correct therapeutic gas delivery based on patient's needs and limitations, per physician order; Administer a ten (10) minute air break for patient if signs and symptoms of seizure appear and notify the hyperbaric physician; Administer a five (5) minute air break for patient signs and symptoms of seizure appear and notify the hyperbaric physician
--- OUTSIDE RECORDS SUMMARY | 2024-11-24 17:09 | XMS_ITS ---
Author Name [facility] Organization Unknown History of Medication Use Medication Directions Dispensed Refills Start Date End Date Stat apixaban (ELIQUIS) 5 MG tablet Take 1 tablet (5 mg total) by mouth 2 (two) times a day. active amLODIPine (NORVASC) 5 MG tablet Take 1 tablet (5 mg total) by mouth every morning. 07/16/2022 04/29/2024 active oxyCODONE (ROXICODONE) 5 MG immediate release tablet Take 1 tablet (5 mg total) by mouth 4 times daily (every 6 hours) as needed for severe pain. Max Daily Amount: 20 mg 01/02/2023 04/29/2024 active Turmeric 500 MG Cap Take 500 mg by mouth every morning. Do not start before January 10, 2023. 01/10/2023 04/29/2024 active magnesium oxide 400 (240 Mg) MG Tab tablet Take 1 tablet (400 mg total) by mouth daily. Take 2 hours apart from other medications; take with food active amLODIPine (NORVASC) 5 MG tablet 07/16/2022 active losartan (COZAAR) 25 MG tablet 07/16/2022 active Problems Problem Status Onset Date Problem Type Date of Resoluti on Source History of kidney stones active ProblemAct [facility] Other hyperlipidemia active ProblemAct [facility] History of mitral valve prolapse active ProblemAct [facility] Hypertension active ProblemAct [facility] Prostate cancer active 2023-01-01 ProblemAct HH [facility] Encounters Encounter Type Encounter Reason Primary Diagnosis Location Date Ambulatory Other microscopic hematuria Other microscopic hematuria [facility] 04/29/2024 Ambulatory [facility] 05/05/2023 Ambulatory [facility] 05/02/2023 Ambulatory [facility] 05/02/2023 Ambulatory Malignant neoplasm of prostate Malignant neoplasm of prostate [facility] 04/14/2023 Ambulatory Acquired absence of other genital organ(s) [facility] 01/17/2023 Ambulatory Other postproced ural complications of skin and subcutaneous tissue [facility] 01/17/2023 Ambulatory Malignant neopla sm of prostate [facility] 01/09/2023 Inpatient Malignant [facility]la [facility] [place] 01/01/2023 Ambulatory Malignant ne[facility]la [facility] [place] 12/17/2022 Ambulatory Encounter for ot her preprocedural examination [facility] 12/17/2022 Ambulatory Malignant [facility]la [facility] [place] 11/01/2022 Ambulatory [facility] 10/08/2022 Ambulatory Malignant ne[facility]la sm [facility] [place] 10/08/2022 Ambulatory [facility] 09/11/2022 Ambulatory [facility] 09/03/2022 Ambulatory [facility] 09/03/2022 Ambulatory Malignant ne[facility]la sm [facility] [place] 09/03/2022 Care Team Organization Name Specialty Phone Email Start Date End Da te [facility] PCP,No Primary Care 05/02/2023 11/03/2024 [facility] NO PCP Primary Care 05/02/2023 05/02/2023 [facility] ZAHIDA ANGELES Primary Care 09/03/2022 5 [facility] ZAHIDA ANGELES Primary Care 09/03/2022 3 [facility]
--- OUTSIDE RECORDS SUMMARY | 2024-11-24 17:09 | XMS_ITS | Encounter Summary ---
Author Organization [facility] Address [address] [place] [address] Care Team Providers Care Game Breeding Farm Manager Name Role Phone Pcp, No Primary Care Provider Unavailabl e Janel, Yael BHAKTA Unavailable [phone] Reason for Visit * Reason Comments Other JOHNNY Encounter Details Date Type Department Care Team ([facility] Contact Info) Description 06/16/2023 Telephone [facility] Urologic Surgery [address] [phone] Don Zhang MD [address] [address] Other (JOHNNY) Social History Tobacco Use Types Packs/Day Years [...] place to sleep or slept in a usp (including now)? No 05/05/2023 Sex and Gender Information Value Date Recorded Sex Assigned at Male 10/08/2022 11:43 AM EST Gender Identity Male 10/08/2022 11:43 AM EST Sexual Orientation Heterosexual (straight) 10/08 11:43 AM EST documented as of this encounter Plan of Treatment Not on file documented as of this encounter Visit Diagnoses Not on filedocumented in this encounter Care Teams Game Breeding Farm Manager Relationship Specialty Start Date End Date Pcp, No [address] [place] [address] PCP - General 05/02/23 Yael Islas, LIVIA [address] [address] Oncology Nurse Navigator 05/05/23 documented as of this encounter
--- OUTSIDE RECORDS SUMMARY | 2024-11-24 17:09 | XMS_ITS | Encounter Summary ---
Author Organization [facility] Address [address] [place] [address] Care Team Providers Care Guest Experience Representative Name Role Phone Pcp, No Primary Care Provider Unavailabl e Carrier, Yael BHAKTA Unavailable [phone] Encounter Details Date Type Department Care Team ([facility] st Contact Info) Description 05/19/2023 Telephone [facility] Urologic Surgery [address] [phone] Don Zhang MD [address] [address] Social History Tobacco Use Types Packs/Day Years [...] encounter Miscellaneous Notes * Telephone Encounter - Krystin Jacobson RN - 05/23/2023 3:42 PM EDT Phone call placed back to the patient this afternoon to discuss the studies further. Unable to reach him, left brief message letting him know the office was calling him back. * Telephone Encounter - Don Zhang MD - 05/20/2023 3:02 PM EDT The dose is not reduced. Radiation is done in few sessions- same dose documented in this encounter Plan of Treatment Not on file documented as of this encounter Visit Diagnoses Not on filedocumented in this encounter Care Teams Guest Experience Representative Relationship Specialty Start Date End Date Pcp, No [address] [place] [address] PCP - General 05/02/23 Yael Islas RN [address] [address] Oncology Nurse Navigator 05/05/23 documented as of this encounter
--- OUTSIDE RECORDS SUMMARY | 2024-11-24 17:09 | XMS_ITS | Encounter Summary ---
Author Organization [facility] Address [address] [place] [address] Care Team Providers Care [employer] Name Role Phone Stalin Dupree MD Primary Care Provider [phone] Pcp, No Primary Care Provider Unavailabl e Carrier, Yael BHAKTA Unavailable [phone] Reason for Visit * Reason Comments Appointment Encounter Details Date Type Department Care Team ([facility] Contact Info) Description 01/21/2023 Telephone [facility] [address] [place] [phone] Don Zhang MD [address] [id number] Appointment Social History Tobacco Use Types Packs/Day Years [...] place to sleep or slept in a assisted (including now)? No 01/02/2023 Sex and Gender [...] AM EDT documented as of this encounter Plan of Treatment Not on file documented as of this encounter Visit Diagnoses Not on filedocumented in this encounter Care Teams [employer] Relationship Specialty Start Date End Date Stalin Dupree MD [address] [place] [address] PCP - General Internal Medicine 08/15/22 05/01/23 Pcp, No [address] [place] [address] PCP - General 05/02/23 Yael Islas RN [address] [address] Oncology Nurse Navigator 05/05/23 documented as of this encounter
== END 2024-11-24 14:56 | disposition home or self-care (01) ==
LOC: HO.LAB 14:55
PROVIDERS: PCP Internal Medicine; Visit Provider Internal Medicine
DX: F90.0 Attention-deficit hyperactivity disorder, predominantly inattentive type (principal)
CPT/HCPCS: 36415

== ENCOUNTER 2024-11-25 10:49 | Outpatient (REF) | payer MEDICARE, SELFPAY ==
[2024-11-25 10:59] LABS: MANUAL DIFF FLAG NO
[2024-11-25 11:13] LABS: Basophils Absolute Auto 0.1 X10*3/uL (0.0-0.2); Eosinophils Absolute Auto 0.2 X10*3/uL (0.0-0.4); Eosinophils Percent Auto 3.3 % (0-4); Hematocrit 34.2 % (42.0-52.0); Hemoglobin 11.1 g/dl (14.0-18.0); Imm Gran Abs Auto 0.03 X10*3/uL (0.00-0.03); Imm Gran Pct Auto 0.5 % (0.0-0.4); Lymphocytes Absolute Auto 1.4 X10*3/uL (1.2-4.9); Lymphocytes Percent Auto 23.3 % (20-40); Mean Corpuscular HGB Conc 32.5 g/dl (31.0-36.0); Mean Corpuscular Hemoglobin 30.4 pg (27.0-33.0); Mean Corpuscular Volume 93.7 fL (80.0-98.0); Mean Platelet Volume 9.5 fL (9.4-12.4); Monocytes Absolute Auto 0.6 X10*3/uL (0.1-1.2); Monocytes Percent Auto 9.6 % (2-11); Neutrophils Absolute Auto 3.6 x10*3/uL (2.0-8.3); Neutrophils Percent Auto 62.3 % (45-73); Platelet Count 170 X10*3/uL (160-400); Red Blood Count 3.65 X10*6/uL (4.60-5.80); Red Cell Distribution Width 14.6 % (11.0-16.0); White Blood Count 5.8 X10*3/uL (4.8-10.8)
[2024-11-25 11:58] LABS: Alanine Aminotransferase 16 U/L (0-40); Albumin Level 3.8 g/dL (3.5-5.0); Alkaline Phosphatase 83 U/L (39-117); Anion Gap 12 (12-20); Aspartate Amino Transferase 26 U/L (5-37); Bilirubin Total 0.5 mg/dL (0.0-1.0); Blood Urea Nitrogen 36 mg/dL (9-16); Calcium 9.1 mg/dL (8.4-10.2); Carbon Dioxide 24 mmol/L (22-29); Chloride 111 mmol/L (96-108); Cholesterol 153 mg/dL (<200); Estimated Glomerular Filt Rate 38; Glucose Random 84 mg/dL (60-115); HDL Cholesterol 35 mg/dL (>40); LDL Cholesterol Calculated 108 mg/dL (<100); Potassium 4.2 mmol/L (3.3-5.1); Sodium 143 mmol/L (135-145); Total Protein 7.3 g/dL (6.5-8.0); Triglycerides 54 mg/dL (<150)
--- OUTSIDE RECORDS SUMMARY | 2024-11-25 12:58 | XMS_ITS | Encounter Summary ---
Author Organization [facility] Address [address] [place] [address] Care Team Providers Care Office Nurse Practitioner Name Role Phone Stalin Dupree MD Primary Care Provider [phone] Pcp, No Primary Care Provider Unavailabl e Yael Islas RN Unavailable [phone] Encounter Details Date Type Department Care Team (Late st Contact Info) Description 03/27/2022 Scanned Document [facility] Urologic Surgery [address] [phone] Stalin Dupree MD [address] [place] [phone] Social History Tobacco Use Types Packs/Day Years [...] on filedocumented in this encounter Care Teams Office Nurse Practitioner Relationship Specialty Start Date End Date Stalin Dupree MD [address] [place] [address] PCP - General Internal Medicine 08/15/22 05/01/23 Pcp, No [address] [place] [address] PCP - General 05/02/23 Yael Islas RN [address] [address] Oncology Nurse Navigator 05/05/23 documented as of this encounter
--- OUTSIDE RECORDS SUMMARY | 2024-11-25 12:58 | XMS_ITS | Encounter Summary ---
Author Organization [facility] Address [address] [place] [address] Care Team Providers Care Physician Assistant Name Role Phone Stalin Dupree MD Primary Care Provider Pcp, No Primary Care Provider Unavailabl e Yael Islas RN Unavailable [phone] Encounter Details Date Type Department Care Team (Late st Contact Info) Description 05/06/2022 Scanned Document [facility] Urologic Surgery [address] [phone] Stalin Dupree MD [address] [place] [phone] Social History Tobacco Use Types Packs/Day Years [...] on filedocumented in this encounter Care Teams Physician Assistant Relationship Specialty Start Date End Date Stalin Dupree MD [address] [place] [phone] PCP - General Internal Medicine 08/15/22 05/01/23 Pcp, No [address] [place] [address] PCP - General 05/02/23 Yael Islas RN [address] [address] Oncology Nurse Navigator 05/05/23 documented as of this encounter
--- OUTSIDE RECORDS SUMMARY | 2024-11-25 12:58 | XMS_ITS | Encounter Summary ---
Author Organization [facility] Address [address] [place] [address] Care Team Providers Care Coal Screener Name Role Phone Stalin Dupree MD Primary Care Provider [phone] Pcp, No Primary Care Provider Unavailabl e Yael Islas RN Unavailable [phone] Encounter Details Date Type Department Care Team (Late st Contact Info) Description 05/23/2022 Scanned Document [facility] Urologic Surgery [address] [phone] Stalin Dupree MD [address] [place] [phone] Social History Tobacco Use Types Packs/Day Years [...] on filedocumented in this encounter Care Teams Coal Screener Relationship Specialty Start Date End Date Stalin Dupree MD [address] [place] [address] PCP - General Internal Medicine 08/15/22 05/01/23 Pcp, No [address] [place] [address] PCP - General 05/02/23 Yael Islas RN [address] [address] Oncology Nurse Navigator 05/05/23 documented as of this encounter
--- OUTSIDE RECORDS SUMMARY | 2024-11-25 12:59 | XMS_ITS | Patient Health Record ---
Author Organization [facility] Address [address] [facility] [address] Care Team Providers Care Coke Worker Name Role Phone Stalin Dupree MD Primary Care Provider UnavailBoyd Mendoza Unavailable [phone] Reason For Referral No Information Medications Medication SIG (Take, Route, Frequency, Duration) Notes Start Date End Date Status amLODIPine Besylate 5 MG Orally Active ASA Active Problems Problem Type SNOMED Code ICD Code Onset Dates Problem Status W/U Status Risk Notes Problem Acquired hallux rigidus (5845721) Hallux rigidus, right foot (M20.21) Active confirmed Plan Of Treatment Pending Test Test Name Order Date X ray : Foot, right 2V 09/16/2016 Insurance Providers Payer Name Payer Address Payer Phone Subscriber Number Group Number Insured Name Patient Relationship to Insured Coverage Start Date Coverage End Date [employer] [place] [employer] Advantage [facility] [address] [place] [address] [id number] Rk Arambula Self - patient is the insured Medical (General) History Medical History History ICD Code High blood pressure Psoriasis Measles Mumps Chicken pox Surgical History Surgery Date(Month/Year) mitral valve repair 2005
--- OUTSIDE RECORDS SUMMARY | 2024-11-25 12:59 | XMS_ITS | Encounter Summary ---
Author Organization [facility] Address [address] [place] [address] Care Team Providers Care Steam Engineer Name Role Phone Stalin Dupree MD Primary Care Provider [phone] Pcp, No Primary Care Provider Unavailabl e aYel Islas RN Unavailable [phone] Encounter Details Date Type Department Care Team (Late st Contact Info) Description 07/09/2022 Scanned Document [facility] Urologic Surgery [address] [phone] Stalin Dupree MD [address] [place] [address] Social History Tobacco Use Types Packs/Day Years [...] on filedocumented in this encounter Care Teams Steam Engineer Relationship Specialty Start Date End Date Stalin Dupree MD [address] [place] [address] PCP - General Internal Medicine 08/15/22 05/01/23 Pcp, No 80 [place] [address] PCP - General 05/02/23 Yael Islas RN [address] [address] Oncology Nurse Navigator 05/05/23 documented as of this encounter
--- OUTSIDE RECORDS SUMMARY | 2024-11-25 12:59 | XMS_ITS | Clinical Summary ---
Author Organization [facility] Address [address] [place] [address] Care Team Providers Care Trial Judge Name Role Phone Unavailable Primary Care Provider [...]
--- OUTSIDE RECORDS SUMMARY | 2024-11-25 12:59 | XMS_ITS | Encounter Summary ---
Author Organization [facility] Address [address] [place] [address] Care Team Providers Care Mold Clamper Name Role Phone Stalin Dupree MD Primary Care Provider Pcp, No Primary Care Provider Unavailabl e Yael Islas RN Unavailable [phone] Encounter Details Date Type Department Care Team (Late st Contact Info) Description 08/09/2022 Scanned Document [facility] Urologic Surgery [address] [place] [phone] Arnaud Cho MD 100 [facility] [address] [place] [address] Social History Tobacco Use Types Packs/Day Years [...] on filedocumented in this encounter Care Teams Mold Clamper Relationship Specialty Start Date End Date Stalin Dupree MD [address] [place] [address] PCP - General Internal Medicine 08/15/22 05/01/23 Pcp, No 80 [place] [address] PCP - General 05/02/23 Yael Islas RN [address] [address] Oncology Nurse Navigator 05/05/23 documented as of this encounter
--- OUTSIDE RECORDS SUMMARY | 2024-11-25 12:59 | XMS_ITS | Encounter Summary ---
Author Organization [facility] Address [address] [place] [address] Care Team Providers Care Technology Sales Specialist Name Role Phone Pcp, No Primary Care Provider Unavailabl e Carrier, Yael BHAKTA Unavailable [phone] Encounter Details Date Type Department Care Team ([facility] st Contact Info) Description 05/29/2023 Scanned Document [facility] Urologic Surgery [place] [address] [address] Jyotsna Barrios MD [address] [place] [address] Social History Tobacco Use Types Packs/Day Years [...] place to sleep or slept in a fpc (including now)? No 05/05/2023 Sex and Gender Information Value Date Recorded Sex Assigned at Male 10/08/2022 11:43 AM EST Gender Identity Male 10/08/2022 11:43 AM EST Sexual Orientation Heterosexual (straight) 10/08 11:43 AM EST documented as of this encounter Plan of Treatment Not on file documented as of this encounter Visit Diagnoses Not on filedocumented in this encounter Care Teams Technology Sales Specialist Relationship Specialty Start Date End Date Pcp, No 80 [place] [address] PCP - General 05/02/23 Yael Islas RN [address] [address] Oncology Nurse Navigator 05/05/23 documented as of this encounter
--- OUTSIDE RECORDS SUMMARY | 2024-11-25 12:59 | XMS_ITS | Encounter Summary ---
Author Organization [facility] Address [address] [place] [address] Care Team Providers Care Sales Officer Name Role Phone Stalin Dupree MD Primary Care Provider [phone] Pcp, No Primary Care Provider Unavailabl e Carrier, Yael BHAKTA Unavailable [phone] Reason for Visit * Reason Comments Medical Complaint Encounter Details Date Type Department Care Team ([facility] Contact Info) Description 01/14/2023 Telephone [facility] Urologic Surgery [address] [phone] Don Zhang MD [address] [place] [address] Medical Complaint Social History Tobacco Use [...] place to sleep or slept in a senior care (including now)? No 01/02/2023 Sex and Gender [...] - 01/14/2023 12:37 PM EDT Pt will pick up man urostomy bag from our [place] office today. Provider made aware documented in this encounter Plan of Treatment Not on file documented as of this encounter Visit Diagnoses Not on filedocumented in this encounter Care Teams Sales Officer Relationship Specialty Start Date End Date Stalin Dupree MD [address] [place] [address] PCP - General Internal Medicine 08/15/22 05/01/23 Pcp, No 80 [place] [address] PCP - General 05/02/23 Yael Islas RN [address] [address] Oncology Nurse Navigator 05/05/23 documented as of this encounter
--- OUTSIDE RECORDS SUMMARY | 2024-11-25 12:59 | XMS_ITS | Clinical Summary ---
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 [address] [place] [phone] José Russell PA Irradiation cystitis with hematuria (Primary Dx); Prostate cancer ([facility]/HCC V24, CMS/HCC V28) 09/16/2024 8:00 AM EST Office Visit [facility] [address] [place] [phone] Carlos La MD Irradiation cystitis with hematuria (Primary Dx); Prostate cancer (CMS/HCC V24, CMS/HCC V28) 09/15/2024 8:00 AM EST Office Visit [facility] [address] [place] [phone] José Russell PA Irradiation cystitis with hematuria (Primary Dx); Prostate cancer ([facility]/HCC V24, CMS/HCC V28) 09/14/2024 8:00 AM EST Office Visit [facility] [address] [place] [phone] José Russell PA Irradiation cystitis with hematuria (Primary Dx); Prostate cancer ([facility]/HCC V24, CMS/HCC V28) 09/13/2024 8:00 AM EST Office Visit [facility] [address] [place] [phone] Carlos La MD Irradiation cystitis with hematuria (Primary Dx); Prostate cancer ([facility]/HCC V24, CMS/HCC V28) 09/10/2024 8:00 AM EST Office Visit [facility] [address] [place] [phone] José Russell PA Irradiation cystitis with hematuria (Primary Dx); Prostate cancer (CMS/HCC V24, CMS/HCC V28) 09/09/2024 8:00 AM EST Office Visit [facility] [address] [place] [phone] José Russell PA Irradiation cystitis with hematuria (Primary Dx); Prostate cancer (CMS/HCC V24, CMS/HCC V28) 09/08/2024 8:00 AM EST Office Visit [facility] [address] [place] [phone] José Russell PA Irradiation cystitis with hematuria (Primary Dx); Prostate cancer ([facility]/HCC V24, CMS/HCC V28) 09/07/2024 8:00 AM EST Office Visit [facility] [address] [place] [phone] José Russell PA Irradiation cystitis with hematuria (Primary Dx); Prostate cancer (CMS/HCC V24, CMS/HCC V28) 09/06/2024 8:00 AM EST Office Visit [facility] [address] [place] [phone] José Russell PA Irradiation cystitis with hematuria (Primary Dx); Prostate cancer ([facility]/HCC V24, CMS/HCC V28) 09/03/2024 8:00 AM EST Office Visit [facility] [address] [place] [phone] Carlos La MD Irradiation cystitis with hematuria (Primary Dx); Prostate cancer ([facility]/HCC V24, CMS/HCC V28) 09/02/2024 8:00 AM EST Office Visit [facility] [address] [place] [phone] Carlos La MD Irradiation cystitis with hematuria (Primary Dx); Prostate cancer ([facility]/HCC V24, CMS/HCC V28) 09/01/2024 8:00 AM EST Office Visit [facility] [address] [place] [phone] José Russell PA Irradiation cystitis with hematuria (Primary Dx); Prostate cancer (CMS/HCC V24, CMS/HCC V28) 08/31/2024 8:00 AM EST Office Visit [facility] [address] [place] [phone] José Russell PA Irradiation cystitis with hematuria (Primary Dx); Prostate cancer (CMS/HCC V24, CMS/HCC V28) 08/30/2024 8:00 AM EST Office Visit [facility] [address] [place] [phone] José Russell PA Irradiation cystitis with hematuria (Primary Dx); Prostate cancer ([facility] V24, [facility] V28) 08/27/2024 8:00 AM EST Office Visit [facility] [address] [place] [phone] José Russell PA Irradiation cystitis with hematuria (Primary Dx); Prostate cancer ([facility] V24, [facility] V28) from Last 3 Months Surgical History Surgery [...] with ureteral stricture Nephrolithiasis 07/27/2024 Prostate cancer ([facility] V24, [facility] V28) Social History Tobacco Use Types Packs/Day Years [...] Description 12/21/2024 7:40 AM EDT Office Visit [facility] [address] [place] [address] [place] [address] Belkis Diaz NP [address] [place] [address] [address] [place], [place] [phone] 07/30/2025 Telephone [facility]iology [facility] [address] [facility] [address] [place] [address] Nathaniel Yin MD [address] [facility] [address] [place] [phone] Medical Records Health Maintenance Due Date Last [...] of hyperbaric oxygen therapy and treatment procedures No Anastasiia Boone RN Patient will tolerate the internal climate of chamber Care Plan Discomfort related to temperature humidity changes inside hyperbaric chamber Anastasiia Brambila RN Prevention of barotraumas during HBO treatment Care Plan Potential for barotraumas to ears, sinuses, teeth, lungs or cerebral gas embolism related to changes in atmospheric pressure inside hyperbaric oxygen chamber No Anastasiia Boone RN Signs and symptoms of seizure will [...] an increased atmospheric pressure Anastasiia Brambila RN Procedures Procedure Name Priority Date/Time Associated Diagnosis Comments POCT GLUCOSE BLOOD Routine 08/30/2024 11 :09 AM EST from Last 3 Months Results * (ABNORMAL) POCT Glucose, blood (08/30/2024 11:09 AM EST) Glucose POCT 177(H) 70 - 100 mg/dL 08/30/2024 11:[address] [facility] Blood Capillary blood specimen / Unknown 08/30/2024 11:09 AM EST 08/30/2024 2:39 PM EST us José DONATO LAB POINT OF CARE T EST DOCKED DEVICE UNSOLICITED RESULTS Final Result [facility] [address] [place] [address], [place] [phone] from Last 3 Months Additional Health Concerns [...] [employer] Care Teams Dot Net Architect Relationship Specialty Start Date End Date Nathaniel Yin MD 299 [facility] [address] [place] [phone] PCP - General Internal Medicine 08/04/24
--- OUTSIDE RECORDS SUMMARY | 2024-11-25 12:59 | XMS_ITS | Clinical Summary ---
Author Organization [facility] Address [address] [place] [address] Care Team Providers Care Burner Shaft Name Role Phone Pcp, No Primary Care Provider Unavailabl e Carrier, Yael BHAKTA Unavailable [phone] Allergies No known active allergies Medications Medication [...] Patient reports he underwent MVP repair at [facility] in 2004. Patient reports occasional swelling in [...] place to sleep or slept in a long-term (including now)? No 05/05/2023 Sex and Gender [...] 6:51 AM 01/01/2023 2:24 PM Care Teams Burner Shaft Relationship Specialty Start Date End Date Pcp, No 80 [place] [address] PCP - General 05/02/23 Yael Islas, LIVIA [address] [address] Oncology Nurse Navigator 05/05/23
--- OUTSIDE RECORDS SUMMARY | 2024-11-25 12:59 | XMS_ITS | Encounter Summary ---
Author Organization [facility] Address [address] [place] [address] Care Team Providers Care Rn Field Case Manager Name Role Phone Pcp, No Primary Care Provider Unavailabl e Carrier, Yael BHAKTA Unavailable [phone] Reason for Visit * Reason Comments Other Second Opinion Encounter Details Date Type Department Care Team ([facility] Contact Info) Description 04/26/2024 Telephone [facility] Urologic Surgery [address] [phone] Don Zhang MD [address] [address] Other (Second Opinion) Social History [...] place to sleep or slept in a detention (including now)? No 05/05/2023 Sex and Gender [...] Dr. Juarezs but has since moved to [place]. Scheduled him with Kelli Peralta in the [place] office on 04/29/24 at 12:30. He is going to have his current urologist send medical records to the [place] office. documented in this encounter Plan of Treatment Not on file documented as of this encounter Visit Diagnoses Not on filedocumented in this encounter Care Teams Rn Field Case Manager Relationship Specialty Start Date End Date Pcp, No 80 [place] [address] PCP - General 05/02/23 Carrier, LIVIA Conley [address] [address] Oncology Nurse Navigator 05/05/23 documented as of this encounter
--- OUTSIDE RECORDS SUMMARY | 2024-11-25 12:59 | XMS_ITS | Encounter Summary ---
Author Organization [facility] Address [address] [place] [address] Care Team Providers Care Cook'S Assistant Name Role Phone Pcp, No Primary Care Provider Unavailabl e Janel, Yael BHAKTA Unavailable [phone] Reason for Visit * Reason Comments Other JOHNNY Encounter Details Date Type Department Care Team ([facility] Contact Info) Description 06/16/2023 Telephone [facility] Urologic Surgery [address] [phone] Don Zhang MD [address] [address] Other (JOHNNY) Social History Tobacco [...] place to sleep or slept in a [place] [facility] [place] (including now)? No 05/05/2023 Sex and Gender Information Value Date Recorded Sex Assigned at Male 10/08/2022 11:43 AM EST Gender Identity Male 10/08/2022 11:43 AM EST Sexual Orientation Heterosexual (straight) 10/08 11:43 AM EST documented as of this encounter Plan of Treatment Not on file documented as of this encounter Visit Diagnoses Not on filedocumented in this encounter Care Teams Cook'S Assistant Relationship Specialty Start Date End Date Pcp, No 80 [place] [address] PCP - General 05/02/23 Yael Islas, LIVIA [address] [address] Oncology Nurse Navigator 05/05/23 documented as of this encounter
--- OUTSIDE RECORDS SUMMARY | 2024-11-25 12:59 | XMS_ITS | Encounter Summary ---
Author Organization [facility] Address [address] [place] [address] Care Team Providers Care Heeler Machine Name Role Phone Stalin Dupree MD Primary Care Provider [phone] Pcp, No Primary Care Provider Unavailabl e Carrier, Yael BHAKTA Unavailable [phone] Reason for Visit * Reason Comments Appointment Encounter Details Date Type Department Care Team ([facility] Contact Info) Description 01/21/[address] [facility] [address] [place] [phone] Don Zhang MD [address] [phone] Appointment Social History Tobacco Use Types Packs/Day [...] on filedocumented in this encounter Care Teams Heeler Machine Relationship Specialty Start Date End Date Stalin Dupree MD 1 [place] [address] PCP - General Internal Medicine 08/15/22 05/01/23 Pcp, No [address] [place] [address] PCP - General 05/02/23 Yael Islas RN [address] [address] Oncology Nurse Navigator 05/05/23 documented as of this encounter
--- OUTSIDE RECORDS SUMMARY | 2024-11-25 12:59 | XMS_ITS | Encounter Summary ---
Author Organization [facility] Address [address] [place] [address] Care Team Providers Care Geophysical Party Chief Name Role Phone Stalin Dupree MD Primary Care Provider Pcp, No Primary Care Provider Unavailabl Yael Fregoso RN Unavailable [phone] Encounter Details Date Type Department Care Team (Late st Contact Info) Description 07/09/2022 Scanned Document [address] [phone] Stalin Dupree MD [address] [place] [address] Social History Tobacco Use Types Packs/Day Years [...] on filedocumented in this encounter Care Teams Geophysical Party Chief Relationship Specialty Start Date End Date Stalin Dupree MD [address] [place] [address] PCP - General Internal Medicine 08/15/22 05/01/23 Pcp, No 80 [place] [address] PCP - General 05/02/23 Yael Islas RN [address] [address] Oncology Nurse Navigator 05/05/23 documented as of this encounter
--- OUTSIDE RECORDS SUMMARY | 2024-11-25 12:59 | XMS_ITS | Encounter Summary ---
Author Organization [facility] Address [address] [place] [address] Care Team Providers Care Regulator Operator Name Role Phone Pcp, No Primary Care Provider Unavailabl e Carrier, Yael BHAKTA Unavailable [phone] Encounter Details Date Type Department Care Team ([facility] st Contact Info) Description 05/19/2023 Telephone [facility] Urologic Surgery [address] [phone] Don Zhang MD [address] [address] Social History Tobacco Use Types [...] place to sleep or slept in a half-way (including now)? No 05/05/2023 Sex and Gender [...] on filedocumented in this encounter Care Teams Regulator Operator Relationship Specialty Start Date End Date Pcp, No 80 [place] [address] PCP - General 05/02/23 Yael Islas RN [address] [address] Oncology Nurse Navigator 05/05/23 documented as of this encounter
--- OUTSIDE RECORDS SUMMARY | 2024-11-25 12:59 | XMS_ITS | Encounter Summary ---
Author Organization [facility] Address [address] [place] [address] Care Team Providers Care Industrial Engineering Manager Name Role Phone Stalin Dupree MD Primary Care Provider [phone] Pcp, No Primary Care Provider Unavailabl e Yael Islas RN Unavailable [phone] Encounter Details Date Type Department Care Team (Late st Contact Info) Description 06/04/2022 Scanned Document [facility] Urologic Surgery [address] [phone] Stalin Dupree MD [address] [place] [address] Social History Tobacco Use Types Packs/Day Years [...] on filedocumented in this encounter Care Teams Industrial Engineering Manager Relationship Specialty Start Date End Date Stalin Dupree MD [address] [place] [address] PCP - General Internal Medicine 08/15/22 05/01/23 Pcp, No 80 [place] [address] PCP - General 05/02/23 Yael Islas RN [address] [address] Oncology Nurse Navigator 05/05/23 documented as of this encounter
--- OUTSIDE RECORDS SUMMARY | 2024-11-25 12:59 | XMS_ITS ---
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
--- OUTSIDE RECORDS SUMMARY | 2024-11-25 12:59 | XMS_ITS ---
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 Past Plans No past plan information found. Radiation Treatments * No radiation treatments are documented for this patient in [facility]. Treatments may have been administered in another system. Lifetime Dose Tracking * Chemical Lifetime Dose Automatic Entry Manual Entr y Fluoro Time 0.1 minutes 0.1 minutes 0 minutes Air Kerma 1 mGy 1 mGy 0 mGy
== END 2024-11-25 10:50 | disposition home or self-care (01) ==
LOC: HO.LAB 10:49
PROVIDERS: Visit Provider Internal Medicine
DX: Z93.6 Other artificial openings of urinary tract status (principal); F90.0 Attention-deficit hyperactivity disorder, predominantly inattentive type; I10 Essential (primary) hypertension; Z85.46 Personal history of malignant neoplasm of prostate
CPT/HCPCS: 36415; 80053; 80061; 85025

== ENCOUNTER 2025-05-10 12:14 | Outpatient (REF) | payer MEDICARE, SELFPAY ==
--- OUTSIDE RECORDS SUMMARY | 2024-02-24 05:30 | XMS_ITS ---
Author Organization [facility], [place] Address [address] [facility] [address] [place] [address] Care Team Providers Care Coroner Technician Name Role Phone Migration, Provider Unavailable Unavailable REASON FOR VISIT Follow-up Appt Encounters Encounter Location Date Provider Diagnosis [facility] [place] [facility], [address] [place] [address] 02/24/2024 Provider Migration Plan Of Treatment No Information Progress Notes * GAURI LAWSDOB:1950 (74 yo M)Acc No.[id number]:02/24/2024 Progress Notes Patient: GAURI KELSEY Provider: Danny Rocha :1950 A ge:73 Y S ex:Male Date:02/24/2024 Phone: Address:[address] [place] [address], [address] , [place], [phone] Subjective: * Chief Complaints: * F ollow-up Appt * Ocular Surgical History: Objective: Vision Examination: * Electronic signature of Prov ider Migration on 05/10/2025 at 03:07 PM EDT Sign off status: Pending * Provider: Danny ford Migration Date: 02/24/2024 Generated for [place] walsh/Jerry/eTalvaradosmitting on: 0 05/10/2025 03:07 PM EDT
--- OUTSIDE RECORDS SUMMARY | 2024-05-17 10:00 | XMS_ITS ---
Author Organization [facility] [place] Address [address] [facility] [address] [place] [address] Care Team Providers Care Emergency Management System Director Name Role Phone Migration, Provider Unavailable Unavailable REASON FOR VISIT Follow-up Appt Encounters Encounter Location Date Provider Diagnosis [facility] [place] [facility], [address] [place] [phone] 05/17/2024 Provider Migration Plan Of Treatment No Information Progress Notes * GAURI LAWSDOB:1950 (74 yo M)Acc No.[id number]:05/17/2024 Progress Notes Patient: GAURI KELSEY Provider: Danny Rocha :1950 A ge:73 Y S ex:Male Date:05/17/2024 Phone: Address:[address] [place] [address], [address] , [place], [phone] Subjective: * Chief Complaints: * F ollow-up Appt * Ocular Surgical History: Objective: Vision Examination: * Electronic signature of Prov ider Migration on 05/10/2025 at 03:07 PM EDT Sign off status: Pending * Provider: Danny ford Migration Date: 05/17/2024 Generated for [place] walsh/Jerry/eTalvaradosmitting on: 05/10/2025 03:07 PM EDT
--- OUTSIDE RECORDS SUMMARY | 2024-06-16 07:30 | XMS_ITS ---
Author Organization [facility] [place] Address [address] [facility] [address] [place] [address] Care Team Providers Care Driver Operator Name Role Phone Migration, Provider Unavailable Unavailable REASON FOR VISIT Follow-up Appt Encounters Encounter Location Date Provider Diagnosis [facility] [place] [facility], [address] [place] [phone] 06/16/2024 Provider Migration Plan Of Treatment No Information Progress Notes * GAURI LAWSDOB:1950 (74 yo M)Acc No.[id number]:06/16/2024 Progress Notes Patient: GAURI KELSEY Provider: Danny Rocha :1950 A ge:73 Y S ex:Male Date:06/16/2024 Phone: Address:[address] [place] [address], [address] , [phone] Subjective: * Chief Complaints: * F ollow-up Appt * Ocular Surgical History: Objective: Vision Examination: * Electronic signature of Prov ider Migration on 05/10/2025 at 03:08 PM EDT Sign off status: Pending * Provider: Danny Rocha Date: 1 Generated for [place] walsh/Jerry/eTalvaradosmitting on: 0 05/10/2025 03:08 PM EDT
--- OUTSIDE RECORDS SUMMARY | 2024-07-19 06:15 | XMS_ITS ---
Author Organization [facility] [place] Address [address] [facility] [address] [place] [address] Care Team Providers Care Water Trainer Name Role Phone Migration, Provider Unavailable Unavailable REASON FOR VISIT Follow-up Appt Encounters Encounter Location Date Provider Diagnosis [facility] [place] [facility], [address] [place] [phone] 07/19/2024 Provider Migration Plan Of Treatment No Information Progress Notes * GAURI LAWSDOB:1950 (74 yo M)Acc No.[id number]:07/19/2024 Progress Notes Patient: GAURI KELSEY Provider: Danny Rocha :1950 A ge:73 Y S ex:Male Date:07/19/2024 Phone: Address:[address] [place] [address], [address] , [phone] Subjective: * Chief Complaints: * F ollow-up Appt * Ocular Surgical History: Objective: Vision Examination: * Electronic signature of Prov ider Migration on 05/10/2025 at 03:08 PM EDT Sign off status: Pending * Provider: Danny Rocha Date: 09/19/2023 Generated for [place] walsh/Jerry/eTalvaradosmitting on: 0 05/10/2025 03:08 PM EDT
--- OUTSIDE RECORDS SUMMARY | 2024-07-19 10:30 | XMS_ITS ---
Author Organization [facility] [place] Address [address] [facility] [address] [place] [address] Care Team Providers Care Fullerette Name Role Phone Migration, Provider Unavailable Unavailable REASON FOR VISIT Follow-up Appt Encounters Encounter Location Date Provider Diagnosis [facility] [place] [facility], [address] [place] [phone] 07/19/2024 Provider Migration Plan Of Treatment No Information Progress Notes * GAURI LAWSDOB:1950 (74 yo M)Acc No.[id number]:07/19/2024 Progress Notes Patient: GAURI KELSEY Provider: Danny Rocha :1950 A ge:73 Y S ex:Male Date:07/19/2024 Phone: Address:[address] [place] [address], [address] , [phone] Subjective: * Chief Complaints: * F ollow-up Appt * Ocular Surgical History: Objective: Vision Examination: * Electronic signature of Prov ider Migration on 05/10/2025 at 03:08 PM EDT Sign off status: Pending * Provider: Danny Rocha Date: 09/19/2023 Generated for [place] walsh/Jerry/eTalvaradosmitting on: 0 05/10/2025 03:08 PM EDT
[2025-05-10 13:10] LABS: Hematocrit 31.4 % (42.0-52.0); Hemoglobin 9.9 g/dl (14.0-18.0); Imm Gran Abs Auto 0.03 X10*3/uL (0.00-0.03); Imm Gran Pct Auto 0.2 % (0.0-0.4); Lymphocytes Absolute Auto 1.3 X10*3/uL (1.2-4.9); MANUAL DIFF FLAG SCAN; Mean Corpuscular HGB Conc 31.5 g/dl (31.0-36.0); Mean Corpuscular Hemoglobin 30.5 pg (27.0-33.0); Mean Corpuscular Volume 96.6 fL (80.0-98.0); NRBC Abs Auto 0.000 X10*3/uL (0.0-0.012); NRBC Pct Auto 0.0 /100WBC (0.0-0.2); Platelet Count 181 X10*3/uL (160-400); Red Blood Count 3.25 X10*6/uL (4.60-5.80); SCAN SMEAR FLAG 1; White Blood Count 12.2 X10*3/uL (4.8-10.8)
[2025-05-10 13:26] LABS: Alanine Aminotransferase 18 U/L (0-40); Albumin Level 4.1 g/dL (3.5-5.0); Alkaline Phosphatase 88 U/L (39-117); Anion Gap 15 (12-20); Aspartate Amino Transferase 25 U/L (5-37); Blood Urea Nitrogen 47 mg/dL (9-16); Calcium 9.4 mg/dL (8.4-10.2); Carbon Dioxide 21 mmol/L (22-29); Chloride 109 mmol/L (96-108); Estimated Glomerular Filt Rate 21; Potassium 5.1 mmol/L (3.3-5.1); Sodium 140 mmol/L (135-145); Total Protein 8.0 g/dL (6.5-8.0)
[2025-05-10 13:43] LABS: Ferritin 101 ng/mL (20-250)
[2025-05-10 13:54] LABS: Folate 10.9 ng/mL (> or = 4.0); Vitamin B12 466 pg/mL (200-900)
--- OUTSIDE RECORDS SUMMARY | 2025-05-10 15:07 | XMS_ITS | Patient Health Record ---
Author Organization [facility] Address [address] [facility] [address] [place] [address] Care Team Providers Care Phone Specialist Name Role Phone Migration, Provider Unavailable Unavailable Reason For Referral No Information Encounters Encounter Location Date Provider Diagnosis [facility] [place] [facility], [address] [phone] 05/17/2024 Provider Migration [address] [phone] 06/16/2024 Provider Migration [address] [phone] 07/19/2024 Provider Migration [address] [address] 07/19/2024 Provider Migration Plan Of Treatment No Information Insurance Providers Payer Name Payer Address Payer Phone Subscriber Number Group Number Insured Name Patient Relationship to Insured Coverage Start Date Coverage End Date [facility] [address] [place] [phone] [id number] GAURI LAWS Self - patient is the insured
--- OUTSIDE RECORDS SUMMARY | 2025-05-10 15:07 | XMS_ITS | Encounter Summary ---
Author Organization [facility] Address [address] [place] [address] Phone Care Team Providers Care Vendor Analyst Name Role Phone Stalin Dupree MD Primary Care Provider [phone] Encounter Details Date Type Department Care Team (Late st Contact Info) Description 09/07/2018 Transcribe Orders [facility] Laboratory [address] [place] [address] Stalin Dupree MD [address] [place] [id number] Benign hypertension (Primary Dx) Social History Tobacco Use Types Packs/Day Years Used Date Smoking Tobacco: Never Assessed Sex and Gender Information Value Date Recorded Sex Assigned at Not on file Legal Sex Male 10:01 PM EDT Gender Identity Not on file Sexual Orientation Not on file documented as of this encounter Plan of Treatment Not on file documented as of this encounter Results * Creatinine/eGFR (09/07/2018 9:24 AM EST) CREATININE 0.80 0.5 - 1.5 mg/dL [facility] EGFR 92 >59 mL/min/1.7 3m2 [facility] Comment:If patient is black, multiply result by 1.159. Estimated glomerular filtration rate calculated using the CKD-EPI equation. Blood 09/07/2018 9:24 AM EST 09/07/2018 9:28 AM EST Stalin Dupree MD LAB BLOOD ORDERABLES Mellissa l Result [address] [address] * Lipid panel (09/07/2018 9:24 AM EST) HDL 39 mg/dL [facility] Comment: Interpretation <40 mg/dL: Low HDL cholesterol (major risk factor for CHD) Greater than or equal to 60 mg/dL: High HDL cholesterol ( negative risk factor for CHD) HDL - cholesterol is affected by a number of factors, e.g. smoking, excerise, hormones, sex and age. CHOLESTEROL 173 0 - 240 mg/dL [facility] TRIGLYCERIDES 42 30 - 160 mg/dL [facility] LDL 126 50 - 129 mg/dL [facility] Comment: LDL levels in terms of risk for coronary heart disease: <100 mg/dL: Optimal 100-129 mg/dL: Near or above optimal 130-159 mg/dL: Borderline high 160-189 mg/dL: High >190 mg/dL: Very High CARDIAC RISK RATIO 4.4 3.4 - 5.0 C [facility] Blood 09/07/2018 9:24 AM EST 09/07/2018 9:28 AM EST Stalin Dupree MD LAB BLOOD ORDERABLES Mellissa l Result Performing Organization Address [facility] Co de Phone Number [address] [address] * (ABNORMAL) BUN (09/07/2018 9:24 AM EST) BUN 24(H) 6 - 19 mg/dL [facility] Blood 09/07/2018 9:24 AM EST 09/07/2018 9:28 AM EST Stalin Dupree MD LAB BLOOD ORDERABLES Mellissa l Result Performing Organization Address [facility]/ZIP Co de Phone Number [address] [address] * Potassium (09/07/2018 9:24 AM EST) POTASSIUM 4.3 3.3 - 5.1 mmol/L [facility] Blood 09/07/2018 9:24 AM EST 09/07/2018 9:28 AM EST us Stalin Dupree MD LAB BLOOD ORDERABLES Mellissa l Result [facility] [address] [place] [address] documented in this encounter Visit Diagnoses Diagnosis Benign hypertension- Primary Essential hypertension, benign documented in this encounter Care Teams Vendor Analyst Relationship Specialty Start Date End Date Stalin Dupree MD [address] [place] [address] PCP - General Internal Medicine 09/07/18 documented as of this encounter Additional Source Comments The information contained in this document represents components of the legal health record. It is not the complete legal health record.[facility]
--- OUTSIDE RECORDS SUMMARY | 2025-05-10 15:07 | XMS_ITS | Encounter Summary ---
Author Organization [facility] Address [address] [place] [address] Care Team Providers Care Fur Trimming Machine Operator Name Role Phone Pcp, No Primary Care Provider Unavailabl e Carrier, Yael BHAKTA Unavailable Encounter Details Date Type Department Care Team ([facility] st Contact Info) Description 04/29/2025 Telephone [facility] Access Center [address] [place] [address] Don Zhang MD [address] [address] Social History Tobacco Use Types Packs/Day Years [...] place to sleep or slept in a prison (including now)? No 05/05/2023 Sex and Gender Information Value Date Recorded Sex Assigned at Male 10/08/2022 11:43 AM EST Legal Sex Male 9:46 AM EST Gender Identity Male 10/08/2022 11:43 AM EST Sexual Orientation Heterosexual (straight) 10/08 11:43 AM EST documented as of this encounter Miscellaneous Notes * Telephone Encounter - Krystin Clinton - 05/02/2025 4:19 PM EDT Phone call to patient to schedule. Left voice mail requesting a call back to our office. documented in this encounter Plan of Treatment Upcoming Encounters Date Type Department Care Team (Late st Contact Info) Description 05/16/2025 9:45 AM EDT Office Visit [facility] [place] [address] [place] [phone] Don Zhang MD [address] [place] [address] documented as of this encounter Visit Diagnoses Not on filedocumented in this encounter Care Teams Fur Trimming Machine Operator Relationship Specialty Start Date End Date Pcp, No [address] [place] [address] PCP - General 05/02/23 Yael Islas RN [address] [place] [address] Oncology Nurse Navigator 05/05/23 documented as of this encounter
--- OUTSIDE RECORDS SUMMARY | 2025-05-10 15:08 | XMS_ITS | Encounter Summary ---
Author Organization [facility] Address [address] [place] [address] Care Team Providers Care Sprinkler Tender Name Role Phone Stalin Dupree MD Primary Care Provider [phone] Pcp, No Primary Care Provider Unavailabl e Carrier, Yael BHAKTA Unavailable [phone] Encounter Details Date Type Department Care Team (Late Contact Info) Description 07/09/2022 Scanned Document [facility] Urologic Surgery [place] [address] [address] Stalin Dupree MD [address] [place] [address] Social History Tobacco Use Types Packs/Day Years Used Date Smoking Tobacco: Never Assessed Sex and Gender Information Value Date Recorded Sex Assigned at Male 10/08/2022 11:43 AM EST Legal Sex Male 9:46 AM EST Gender Identity Male 10/08/2022 11:43 AM EST Sexual Orientation Heterosexual (straight) 10/08 11:43 AM EST documented as of this encounter Plan of Treatment Upcoming Encounters Date Type Department Care Team (Late Contact Info) Description 05/16/2025 9:45 AM EDT Office Visit [facility] Urology [place] [address] [place] [address] Don Zhang MD [address] [phone] documented as of this encounter Visit Diagnoses Not on filedocumented in this encounter Care Teams Sprinkler Tender Relationship Specialty Start Date End Date Stalin Dupree MD [address] [place] [address] PCP - General Internal Medicine 08/15/22 05/01/23 Pcp, Tata [address] [place] [address] PCP - General 05/02/23 Yael Islas RN [address] [address] Oncology Nurse Navigator 05/05/23 documented as of this encounter
--- OUTSIDE RECORDS SUMMARY | 2025-05-10 15:08 | XMS_ITS ---
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 Patient's ejection fraction does not warrant an ICD at this time Coronary artery disease 07/27/2024 Assessment & Plan (03/03/2025 4:08 PM EDT): No progression of his ischemic coronary disease. Based on his results the patient will be an acceptable risk for any planned urological procedure without the need for any further cardiac intervention. Orders: ECG 12 lead Assessment & Plan (01/05/2025 5:14 PM EDT): Patient has history of coronary artery disease identified on previous coronary angiogram where 50% LAD lesion was identified. Patient has been on aspirin and beta-rell. He has history of statin intolerance. Unfortunately he is having some difficulties with Raynaud's and is asking to come off the beta-rell and possibly go back on the amlodipine and losartan he was on previously. We discussed the implications of this. We discussed that we can take him off the beta-rell and see if his symptoms improve. It appears that he was started on this in the past because he had some PVCs while he was hospitalized. He does have some PVCs on his EKG today. It is possible that he may develop some increased palpitations coming off of the metoprolol. We will have to monitor this and see if this continues and we will also arrange for a 24-hour traffic monitor specialist to assess his overall PVC burden. Given his concern regarding his risk factors as well as his known coronary artery disease we will also arrange for a nuclear stress test to assess for any level of ischemia which could change our thoughts about his medical therapies. His EKG today is showing some T wave abnormalities in the inferior leads. Lateral leads also showing some T wave abnormality. He does have history of statin intolerance with elevations in his liver function testing. We may need to consider PSK 9 inhibitor if his LDL cholesterol remains above 70. For now he will switch to amlodipine for the management of his blood pressure, we will arrange for a stress test and he will have a traffic monitor specialist in 2 weeks. We will see him back after his cardiac testing to reassess and to discuss next steps. Heart valve disease 07/27/2024 Assessment & Plan (03/03/2025 4:08 PM EDT): Status post mitral valve repair. Needs to continue endocarditis prophylaxis Orders: ECG 12 lead Assessment & Plan (01/05/2025 1:27 PM EDT): Patient has history of mitral valve repair in 2014. We will update an echocardiogram for ongoing surveillance. Hypertension 07/27/2024 Assessment & Plan (03/03/2025 4:08 PM EDT): Continue medical management with good control blood pressure Orders: ECG 12 lead Assessment & Plan (01/05/2025 5:14 PM EDT): Patient was previously on amlodipine and losartan. He was switched to metoprolol at some point during his hospitalization last year. He expresses worsening of his Raynaud's syndrome since being on metoprolol. We will trial having him go back to amlodipine and add losartan next visit if necessary. 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 Past Plans No past plan information found. Radiation Treatments * No radiation treatments are documented for this patient in [facility]. Treatments may have been administered in another system. Lifetime Dose Tracking * Chemical Lifetime Dose Automatic Entry Manual Entr y Fluoro Time 0.1 minutes 0.1 minutes 0 minutes Air Kerma 1 mGy 1 mGy 0 mGy
--- OUTSIDE RECORDS SUMMARY | 2025-05-10 15:08 | XMS_ITS | Encounter Summary ---
Author Organization [facility] Address [address] [place] [address] Care Team Providers Care Laboratory Courier Name Role Phone Stalin Dupree MD Primary Care Provider [phone] Pcp, No Primary Care Provider Unavailabl e Carrier, Yael BHAKTA Unavailable Reason for Visit * Reason Comments Appointment Encounter Details Date Type Department Care Team ([facility] Contact Info) Description 01/21/2023 Telephone [facility] Access Center [address] [place] [address] Don Zhang MD [address] [phone] Appointment Social History Tobacco Use Types Packs/Day [...] Description 05/16/2025 9:45 AM EDT Office Visit [facility] Urology [place] [address] Don Zhang MD [address] [place] [address] documented as of this encounter Visit Diagnoses Not on filedocumented in this encounter Care Teams Laboratory Courier Relationship Specialty Start Date End Date Stalin Dupree MD [address] [place] [address] PCP - General Internal Medicine 08/15/22 05/01/23 Pcp, No [address] [place] [address] PCP - General 05/02/23 Yael Islas RN [address] [address] Oncology Nurse Navigator 05/05/23 documented as of this encounter
--- OUTSIDE RECORDS SUMMARY | 2025-05-10 15:08 | XMS_ITS | Clinical Summary ---
Author Organization [facility] [employer] Address [address] [facility] [place] [address] Phone Care Team Providers Care Traveling Nurse Name Role Phone Denise Edgar MD Primary Care Provider Allergies Active Allergy Reactions Criticality Noted Date Comments Atorvastatin Liver function tests abnormal Medium 07/28/2024 Milk Containing Products (Dairy) Low 07/28/2024 Medications aspirin 81 mg EC tablet Take 1 tablet (81 mg total) by mouth 1 (one) time each day. 3 Active methylphenidate (RITALIN) 5 mg tablet Take 1 tablet (5 mg total) by mouth 1 (one) time each day. Active amLODIPine (NORVASC) 5 mg tablet Take 1 tablet (5 mg total) by mouth 1 (one) time each day. 90 each 1 5 Active Additional Information Patient not taking.Reported on 03/03/2025 metoprolol succinate (TOPROL-XL) 25 mg 24 hr tablet Take 1 tablet (25 mg total) by mouth 1 (one) time each day. 5 Active methylphenidate (RITALIN LA) 10 mg 24 hr capsule Take 1 capsule (10 mg total) by mouth 1 (one) time each day in the morning. Do not crush or chew. Max Daily Amount: 10 mg Active ascorbic acid (VITAMIN C) 1,000 mg tablet Take 1 tablet (1,000 mg total) by mouth 1 (one) time each day. Active vitamin A 2,400 mcg capsule Take 1 capsule (8,000 Units total) by mouth 1 (one) time each day. Active cholecalciferol (VITAMIN D-3) 25 mcg (1,000 unit) tablet Take 1 tablet (1,000 Units total) by mouth 1 (one) time each day. Active magnesium 200 mg tablet Take 1 tablet by mouth 1 (one) time each day. Active ferrous sulfate 325 mg (65 mg elemental iron) tablet Take 1 tablet (325 mg total) by mouth 1 (one) time each day with breakfast. Active Lactobacillus acidophilus (PROBIOTIC ORAL) Take 1 tablet by mouth 1 (one) time each day. Active Active Problems Problem Noted Date [...] we will also arrange for a 24-hour parts department manager to assess his overall PVC burden. Given [...] stress test and he will have a parts department manager in 2 weeks. We will see him [...] Encounters Date Type Department Care Team Description 03/03/2025 8:50 AM EDT Office Visit [facility] Cardiology [facility] [address] [place] [address] Andrzej Alba MD Coronary artery disease, unspecified vessel or lesion type, unspecified whether angina present, unspecified whether torres martinez or transplanted heart (Primary Dx); Heart valve disease; Other secondary hypertension; PVC (premature ventricular contraction) 02/28/2025 Telephone [facility] [address] [place] [address] Andrzej Alba MD 02/11/2025 Telephone [facility] Cardiology [facility] [address] [place] [address] Andrzej Alba MD from Last 3 Months Surgical History Surgery Date Site/Laterality Comments MITRAL VALVE REPLACEMENT repair per pt from prolaps PROSTATECTOMY LITHOTRIPSY CYSTOSCOPY W/ URETERAL STENT PLACEMENT CARDIAC CATHETERIZATION DONE ON 02/10/2025 AT [facility] INDICATIONS: Abnormal stress perfusion study Medical History Medical History Date Comments CKD (chronic kidney disease) DX: CKD (chronic kidney disease) Adhd DX:ADHD Coronary artery disease 07/27/2024 Heart valve disease 07/27/2024 Hypertension 07/27/2024 Raynaud's syndrome 07/27/2024 Chronic kidney disease 07/27/2024 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 Gross hematuria 07/27/2024 Hydronephrosis with ureteral stricture Nephrolithiasis 07/27/2024 Prostate cancer ([facility] V24, [facility] V28) Social History Tobacco Use Types Packs/Day Years Used Date Smoking Tobacco: Never Smokeless Tobacco: Never Alcohol Use Standard Drinks/Week Comments Yes 0 (1 standard drink = 0.6 oz pur e alcohol) occasional Sex and Gender Information Value Date Recorded Sex Assigned at Not on file Legal Sex Male 11:18 PM EST Gender Identity Not on file Sexual Orientation Not on file Obstetrics History Last Filed Vital Signs Vital Sign Reading Time Taken Comments Blood Pressure 123/54 01/19/2025 8:49 AM EDT Pulse 72 03/03/2025 9:01 AM EDT Temperature 36.8 C (98.2 F) 07/28/2024 9:39 AM EST Respiratory Rate 16 07/28/2024 9:39 AM EST Oxygen Saturation 99% 03/03/2025 9:01 AM EDT Inhaled Oxygen Concentration - - Weight 76.7 kg (169 lb) 03/03/2025 9:01 AM EDT Height 172.7 cm (5' 8 ) 03/03/2025 9:01 AM EDT Body Mass Index 25.7 03/03/2025 9:01 AM EDT Plan of Treatment Upcoming Encounters Date Type Department Care Team (Late st Contact Info) Description 07/30/2025 Telephone [facility] [address] [place] [address] [place] [address] Andrzej Yin MD [address] [place] [address] 09/06/2025 9:20 AM EST Office Visit [facility] [address] [place] [address] [address] [place] [address] Andrzej Alba MD [address] [place] [address] [address] [place] [address] Health Maintenance Due Date Last Done Comments Colorectal Cancer Screening: Colonoscopy 07/28/2022 Hepatitis C Screening 07/28/2022 Medicare Annual Wellness Visit 07/28/2022 Social Influencers of Health Screening 07/28/2022 Cholesterol Screening (Lipid Panel) 05/24/2024 05/24/2019 Depression Screening 08/18/2024 COVID-19 Vaccine (8 - Moderna risk season) 2025 04/28/2024, 05/14/2023, 05/01/2022, Additional history exists Influenza Vaccine (#1) 2025 , 05/29/2023, 05/01/2022, Additional history exists Falls Risk Assessment 07/28/2025 07/28/2024 Hypertension/CHF/CAD Annual BMP Blood Test 02/01/2026 02/01/2025, 01/02/2023, 12/17/2022 DTaP,Tdap,and Td Vaccines (4 - Td or Tdap) 12/07/2034 12/07/2024, 01/11/2021, 08/18/1999 Zoster Vaccines Completed 08/24/2018, 05/18/2018 RSV Immunization Adult Patients Completed 05/14/2023 Pneumococcal Vaccine: 50+ Years Completed 12/07/2024, 08/15/2018 HIB Vaccines Aged Out No longer eligi [...] Procedure Name Priority Date/Time Associated Diagnosis Comments ECG 12-LEAD Routine 03/03/2025 9:12 AM EDT Coronary artery disease, unspecified vessel or lesion type, unspecified whether angina present, unspecified whether torres martinez or transplanted heart Heart valve disease Other secondary hypertension BASIC METABOLIC PANEL Routine 02/01/2025 12:50 PM EDT Coronary artery disease, unspecified vessel or lesion type, unspecified whether angina present, unspecified whether torres martinez or transplanted heart from Last 3 Months or Most Recently Relevant to Health Maintenance Results * ECG 12 lead (03/03/2025 9:12 AM EDT) Ventricular Rate ECG 73 BPM GEMUSE Atrial Rate 73 BPM GEMUSE P-R Interval 202 ms GEMUSE QRS Duration 98 ms GEMUSE Q-T Interval 380 ms GEMUSE QTc 418 ms GEMUSE P Wave [place] 43 degrees GEMUSE R [place] 73 degrees GEMUSE T [place] -50 degrees GEMUSE ECG Interpretation Sinus rhythm with occasional Premature ventricular complexes Cannot rule out Inferior infarct (cited on or before 05-JAN-2025) ST and T wave abnormality, consider lateral ischemia Abnormal ECG When compared with ECG of 05-JAN-2025 13:15, No significant change was found Confirmed by Palmira ALBA, ANDRZEJ ([id number]) on 03/03/2025 3:09:50 PM GEMUSE 03/03/2025 9:12 AM EDT 03/03/2025 3:09 PM EDT us Andrzej Alba MD ECG ORDERABLES Final Result GEMUSE * (ABNORMAL) Basic metabolic panel (02/01/2025 12:50 PM EDT) Sodium 141 133 - 145 mmol/L LAB CHEMISTRY METHOD 02/01/2025 3:00 PM [facility] Potassium 4.1 3.5 - 5.5 mmol/L LAB CHEMISTRY METHOD 02/01/2025 3:00 PM [facility] Chloride 108 96 - 110 mmol/L LAB CHEMISTRY METHOD 02/01/2025 3:00 PM [facility] CO2 26 21 - 32 mmol/L LAB CHEMISTRY METHOD 02/01/2025 3:00 PM [facility] Anion Gap 7 3 - 11 LAB CHEMISTRY METHOD 02/01/2025 3:00 PM [facility] Glucose 105(H) 70 - 100 mg/dL LAB CHEMISTRY METHOD 02/01/2025 3:00 PM [facility] BUN 37(H) 5 - 25 mg/dL LAB CHEMISTRY METHOD 02/01/2025 3:00 PM [facility] Creatinine 2.21(H) 0.70 - 1.30 mg/dL LAB CHEMISTRY METHOD 02/01/2025 3:[address] [facility] eGFR 30(L) >=60 mL/min/1. 73m2 LAB CHEMISTRY METHOD 02/01/2025 3:[address] [facility] Comment:Calculation based on the Chronic Kidney Disease Epidemiology Collaboration (CKD-EPI) equation refit without adjustment for race. BUN/Creatinine Ratio 16.7 LAB CHEMISTRY METHOD 02/01/2025 3:[address] [facility] Calcium 9.3 8.5 - 10.5 mg/dL LAB CHEMISTRY METHOD 02/01/2025 3:[address] [facility] Blood Venous blood specimen / Unknown Venipuncture / Unknown 02/01/2025 12:50 PM EDT 02/01/2025 1:58 PM EDT us Belkis Diaz NP LAB BLOOD ORDERABLES Final R esult [facility] [address] [place] [address], [place] [phone] from Last 3 Months or Most Recently Relevant to Health Maintenance Additional Health Concerns Active Problems Noted Date [...] at an increased atmospheric pressure 07/28/2024 Insurance [facility] MEDICARE ADVANTAGE Care Teams Traveling Nurse Relationship Specialty Start Date End Date Denise Edgar MD [address] [place] [address] [place] [address] PCP - General Internal Medicine 01/05/25
--- OUTSIDE RECORDS SUMMARY | 2025-05-10 15:08 | XMS_ITS ---
Care Plan Created on: May 10, 2025 Rk Arambula : 1950 Sex: Male Author Organization [facility] [employer] Address [address] [place] [address] Phone Care Team Providers Care Information Technology Manager Name Role Phone Denise Edgar MD Primary Care Provider [phone] Active Problems Problem Noted Date Diagnosed Date [...] we will also arrange for a 24-hour case monitor to assess his overall PVC burden. Given [...] stress test and he will have a case monitor in 2 weeks. 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
--- OUTSIDE RECORDS SUMMARY | 2025-05-10 15:08 | XMS_ITS | Encounter Summary ---
Author Organization [facility] Address [address] [place] [address] Care Team Providers Care Cupboard Builder Name Role Phone Stalin Dupree MD Primary Care Provider [phone] Pcp, No Primary Care Provider Unavailabl e Janel, Yael BHAKTA Unavailable [phone] Encounter Details Date Type Department Care Team (Late st Contact Info) Description 07/09/2022 Scanned Document [address] 100 [place] [phone] Stalin Dupree MD [address] [place] [address] Social History Tobacco Use Types Packs/Day Years [...] Description 05/16/2025 9:45 AM EDT Office Visit [facility] [place] [address] [place] [phone] Don Zhang MD [address] [place] [address] documented as of this encounter Visit Diagnoses Not on filedocumented in this encounter Care Teams Cupboard Builder Relationship Specialty Start Date End Date Stalin Dupree MD 811 [place] [address] PCP - General Internal Medicine 08/15/22 05/01/23 Pcp, Tata 80 [place] [address] PCP - General 05/02/23 Yael Islas RN [address] [address] Oncology Nurse Navigator 05/05/23 documented as of this encounter
--- OUTSIDE RECORDS SUMMARY | 2025-05-10 15:08 | XMS_ITS | Encounter Summary ---
Author Organization [facility] Address 100 [place] [address] Care Team Providers Care Medical Aide Name Role Phone Stalin Dupree MD Primary Care Provider [phone] Pcp, No Primary Care Provider Unavailabl e Janel, Yael BHAKTA Unavailable [phone] Encounter Details Date Type Department Care Team (Late st Contact Info) Description 08/09/2022 Scanned Document [facility] Urologic Surgery [place] [address] [address] Arnaud Cho MD 100 [facility] 120 [place], [place] [id number] Social History Tobacco Use Types Packs/Day Years [...] Description 05/16/2025 9:45 AM EDT Office Visit [facility] [place] 385 [place] [address] Don Zhang MD 85 [facility] 416 [place], [place] [phone] documented as of this encounter Visit Diagnoses Not on filedocumented in this encounter Care Teams Medical Aide Relationship Specialty Start Date End Date Stalin Dupree MD 1 [place] [address] PCP - General Internal Medicine 08/15/22 05/01/23 Pcp, Tata [address] [place] [address] PCP - General 05/02/23 Yael Islas RN [address] [address] Oncology Nurse Navigator 05/05/23 documented as of this encounter
--- OUTSIDE RECORDS SUMMARY | 2025-05-10 15:08 | XMS_ITS | Clinical Summary ---
Author Organization [facility] Address [address] [place] [address] Care Team Providers Care Customs And Border Protection Inspector Name Role Phone Unavailable Primary Care Provider [...] 1 - PCV) 12/19/2015 Influenza Vaccine (#1) 2025 RSV Adult > 60+ Yrs or Pregn ant (1 - 1-dose 75+ series) 2025 Hepatitis B Vaccines Aged Out No long er eligible based on patient's age to complete this topic RSV Ped < 20 months Aged Out No longe r eligible based on patient's age to complete this topic
--- OUTSIDE RECORDS SUMMARY | 2025-05-10 15:08 | XMS_ITS | Encounter Summary ---
Author Organization [facility] Address 100 [place] [address] Care Team Providers Care Salt Washer Harvesting Station Name Role Phone Stalin Dupree MD Primary Care Provider Pcp, No Primary Care Provider Unavailabl e Carrier, Yael BHAKTA Unavailable [phone] Encounter Details Date Type Department Care Team (Late Contact Info) Description 05/06/2022 Scanned Document [facility] Urologic Surgery [place] [address] [address] Stalin Dupree MD 811 [place] [address] Social History Tobacco Use Types Packs/Day Years [...] 05/16/2025 9:45 AM EDT Office Visit [facility] [place] [address] [place] [address] Don Zhang MD [address] [phone] documented as of this encounter Visit Diagnoses Not on filedocumented in this encounter Care Teams Salt Washer Harvesting Station Relationship Specialty Start Date End Date Stalin Dupree MD 1 [place] [address] PCP - General Internal Medicine 08/15/22 05/01/23 Pcp, Tata 80 [place] [address] PCP - General 05/02/23 Yael Islas RN [address] [address] Oncology Nurse Navigator 05/05/23 documented as of this encounter
--- OUTSIDE RECORDS SUMMARY | 2025-05-10 15:08 | XMS_ITS | Encounter Summary ---
Author Organization [facility] Address 100 [place] [address] Care Team Providers Care Layout Artist Name Role Phone Stalin Dupree MD Primary Care Provider [phone] Pcp, No Primary Care Provider Unavailabl e Carrier, Yael BHAKTA Unavailable [phone] Encounter Details Date Type Department Care Team (Late Contact Info) Description 03/27/2022 Scanned Document [facility] Urologic Surgery [place] [address] [address] Stalin Dupree MD 811 [place] [address] Social History Tobacco Use Types Packs/Day Years [...] Description 05/16/2025 9:45 AM EDT Office Visit [facility] [place] [address] [place] [address] Don Zhang MD [address] [phone] documented as of this encounter Visit Diagnoses Not on filedocumented in this encounter Care Teams Layout Artist Relationship Specialty Start Date End Date Stalin Dupree MD 1 [place] [address] PCP - General Internal Medicine 08/15/22 05/01/23 Pcp, Tata 80 [place] [address] PCP - General 05/02/23 Yael Islas RN [address] [address] Oncology Nurse Navigator 05/05/23 documented as of this encounter
--- OUTSIDE RECORDS SUMMARY | 2025-05-10 15:08 | XMS_ITS ---
Author Name [facility] Organization Unknown History of Medication Use Medication Directions Dispensed Refills Start Date End Date Stat Turmeric 500 MG Cap Take 500 mg by mouth every morning. Do not start before January 10, 2023. 01/10/2023 04/29/2024 active oxyCODONE (ROXICODONE) 5 MG immediate release tablet Take 1 tablet (5 mg total) by mouth 4 times daily (every 6 hours) as needed for severe pain. Max Daily Amount: 20 mg 01/02/2023 04/29/2024 active amLODIPine (NORVASC) 5 MG tablet Take 1 tablet (5 mg total) by mouth every morning. 07/16/2022 04/29/2024 active amLODIPine (NORVASC) 5 MG tablet 07/16/2022 active losartan (COZAAR) 25 MG tablet 07/16/2022 active apixaban (ELIQUIS) 5 MG tablet Take 1 tablet (5 mg total) by mouth 2 (two) times a day. active magnesium oxide 400 (240 Mg) MG Tab tablet Take 1 tablet (400 mg total) by mouth daily. Take 2 hours apart from other medications; take with food active Problems Problem Status Onset Date Problem Type Date of Resoluti on Source Other hyperlipidemia active ProblemAct [facility] Prostate cancer active 2023-01-01 ProblemAct [facility] History of mitral valve prolapse active ProblemAct [facility] History of kidney stones active ProblemAct [facility] Hypertension active ProblemAct [facility] Encounters Encounter Type Encounter Reason Primary Diagnosis Location Date Ambulatory Other microscopic hematuria Other microscopic hematuria [facility] 04/29/2024 Ambulatory [facility] 05/05/2023 Ambulatory [facility] 05/02/2023 Ambulatory [facility] 05/02/2023 Ambulatory Malignant neoplasm of prostate Malignant neoplasm of prostate [facility] 04/14/2023 Ambulatory Acquired absence of other genital organ(s) [facility] 01/17/2023 Ambulatory Other postproced ural complications of skin and subcutaneous tissue [facility] 01/17/2023 Ambulatory Malignant neopla sm of prostate [facility] 01/09/2023 Inpatient Malignant neopla sm of prostate [facility] 01/01/2023 Ambulatory Malignant neopla sm of prostate [facility] 12/17/2022 Ambulatory Encounter for ot her preprocedural examination [facility] 12/17/2022 Ambulatory Malignant neopla sm of prostate [facility] 11/01/2022 Ambulatory [facility] 10/08/2022 Ambulatory Malignant neopla sm of [facility] 10/08/2022 Ambulatory [facility] 09/11/2022 Ambulatory [facility] 09/03/2022 Ambulatory [facility] 09/03/2022 Ambulatory Malignant neopla sm of [facility] 09/03/2022 Care Team Organization Name Specialty Phone Email Start Date End Da te [facility] PCP,No Primary Care 05/02/2023 11/03/2024 [facility] NO PCP Primary Care 05/02/2023 05/02/2023 [facility] ZAHIDA ANGELES Primary Care 09/03/2022 5 [facility] ZAHIDA ANGELES Primary Care 09/03/2022 3 [facility]
--- OUTSIDE RECORDS SUMMARY | 2025-05-10 15:08 | XMS_ITS | Patient Health Record ---
Author Organization [facility] Address [address] [place] [address] Care Team Providers Care Spot Welder Line Name Role Phone Stalin Dupree MD Primary Care Provider UnavailBoyd Mendoza Unavailable [phone] Reason For Referral No Information Medications Medication SIG (Take, Route, Frequency, Duration) Notes Start Date End Date Status amLODIPine Besylate 5 MG Orally Active ASA Active Problems Problem Type SNOMED Code ICD Code Onset Dates Problem Status W/U Status Risk Notes Problem Acquired hallux rigidus (7483007) Hallux rigidus, right foot (M20.21) Active confirmed Plan Of Treatment Pending Test Test Name Order Date X ray : Foot, right 2V 09/16/2016 Insurance Providers Payer Name Payer Address Payer Phone Subscriber Number Group Number Insured Name Patient Relationship to Insured Coverage Start Date Coverage End Date [employer] [place] [employer] Advantage [facility] [address] [place] [address] [phone] [id number] Rk Arambula Self - patient is the insured Medical (General) History Medical History History ICD Code High blood pressure Psoriasis Measles Mumps Chicken pox Surgical History Surgery Date(Month/Year) mitral valve repair 2005
--- OUTSIDE RECORDS SUMMARY | 2025-05-10 15:08 | XMS_ITS | Encounter Summary ---
Author Organization [facility] Address 100 [place] [address] Care Team Providers Care Sheet Catcher Name Role Phone Stalin Dupree MD Primary Care Provider [phone] Pcp, No Primary Care Provider Unavailabl e Carrier, Yael BHAKTA Unavailable [phone] Encounter Details Date Type Department Care Team (Late Contact Info) Description 05/23/2022 Scanned Document [facility] Urologic Surgery [place] [address] [address] Stalin Dupree MD 811 [place] [address] Social History Tobacco Use Types Packs/Day Years [...] Description 05/16/2025 9:45 AM EDT Office Visit [facility] [place] [address] [place] [address] Don Zhang MD 85 [facility] 416 [place], [place] [phone] documented as of this encounter Visit Diagnoses Not on filedocumented in this encounter Care Teams Sheet Catcher Relationship Specialty Start Date End Date Stalin Dupree MD 1 [place] [address] PCP - General Internal Medicine 08/15/22 05/01/23 Pcp, Tata 80 [place] [address] PCP - General 05/02/23 Yael Islas RN [address] [address] Oncology Nurse Navigator 05/05/23 documented as of this encounter
--- OUTSIDE RECORDS SUMMARY | 2025-05-10 15:08 | XMS_ITS | Clinical Summary ---
Author Organization [facility] Address [address] [address] Phone Care Team Providers Care Speech Language Pathologist Travel Name Role Phone Stalin Dupree MD Primary Care Provider [phone] Allergies No known active allergies Medications acetaminophen (TYLENOL) 325 mg tablet Take 975 mg by mouth 3 (three) times a day as needed for pain (specific location in comments). 4 Active METOPROLOL SUCCINATE ORAL Take 25 mg by mouth daily. Active Bacillus coagulans (PROBIOTIC, B. COAGULANS, ORAL) Take 1 capsule by mouth daily. Active sodium chloride (NS) 0.9 % syringe flush Inject 10 mL into the vein 2 (two) times a day. pre and post iv antibiotic admin and prn Active heparin sodium,porcine/ PF (HEPARIN, PF,) 0.5 unit/mL flush Inject 5 mL into the vein daily. post iv digital media producer when disconnected . 4 Active Social History Tobacco Use Types Packs/Day Years Used Date Smoking Tobacco: Never Assessed Home Health Assessment: Transportation Answer Date Recorded Lack of Transportation (Medical) No 08/13/2024 Lack of Transportation (Non-Medical) No 08/13/2024 Patient Unable or Declines to Respond No 08/13/2024 Education Answer Date Recorded Are you interested in more education? Not on osiel e 12/13/2022 Are you concerned about learning? Not on file 12/13/2022 No 12/13/2022 No 12/13/2022 Digital Access Answer Date Recorded No 01/13/2023 No 01/13/2023 No 01/13/2023 Reliable internet access at home? Not on file 01/13/2023 Device with a working camera? Not on file Sex and Gender Information Value Date Recorded Sex Assigned at Not on file Legal Sex Male 10:01 PM EDT Gender Identity Not on file Sexual Orientation Not on file Last Filed Vital Signs Vital Sign Reading Time Taken Comments Blood Pressure 122/60 08/13/2024 1:05 PM EST Pulse 60 08/13/2024 1:05 PM EST Temperature 36.3 C (97.4 F) 08/13/2024 1:05 PM EST Respiratory Rate 16 08/13/2024 1:05 PM EST Oxygen Saturation 98% 08/13/2024 1:05 PM EST Inhaled Oxygen Concentration - - Weight - - Height - - Body Mass Index - - Plan of Treatment Health Maintenance Due Date Last Done Comments Adult Td,Tdap Booster 1950 DEPRESSION SCREENING 1962 SMOKING Hx and SMOKELESS TOBACCO SCREENING 12/19/1963 HEPATITIS C SCREENING 1968 COLOGUARD 12/19/1995 COLONOSCOPY 12/19/1995 COLORECTAL CANCER SCREENING 12/19/1995 FIT TEST 12/19/1995 FOBT 12/19/1995 SIGMOIDOSCOPY 12/19/1995 VIRTUAL COLONOSCOPY 12/19/1995 PNEUMOCOCCAL VACCINES (50+ years) (1 of 1 - PCV) 2000 LIPID PANEL 05/24/2024 05/24/2019, 09/07/2018 INFLUENZA VACCINE (#1) 2025 05/18/2018 COVID-19 VACCINE (2 - 2024-2 6 season) 2025 10/31/2020 RSV VACCINE (1 - 1-dose 75+ series) 2025 ZOSTER VACCINES Completed 08/24/2018, 05/18/2018 HEPATITIS A VACCINES Aged Out No long er eligible based on patient's age to complete this topic HIB VACCINES Aged Out No longer eligi ble based on patient's age to complete this topic MENINGOCOCCAL VACCINES (ACWY) Aged Out No longer eligible based on patient's age to complete this topic MENINGOCOCCAL VACCINES (B) Aged Out N o longer eligible based on patient's age to complete this topic Medical Devices Not on file Procedures Procedure Name Priority Date/Time Associated Diagnosis Comments LIPID PANEL Routine 05/24/2019 9:21 AM EDT Hypertension, unspecified type from Last 3 Months or Most Recently Relevant to Health Maintenance Results * Lipid panel (05/24/2019 9:21 AM EDT) HDL 46 mg/dL [facility] Comment: Interpretation <40 mg/dL: Low HDL cholesterol (major risk factor for CHD) Greater than or equal to 60 mg/dL: High HDL cholesterol ( negative risk factor for CHD) HDL - cholesterol is affected by a number of factors, e.g. smoking, excerise, hormones, sex and age. CHOLESTEROL 166 0 - 240 mg/dL [facility] TRIGLYCERIDES 31 30 - 160 mg/dL [facility] LDL 114 50 - 129 mg/dL [facility] Comment: LDL levels in terms of risk for coronary heart disease: <100 mg/dL: Optimal 100-129 mg/dL: Near or above optimal 130-159 mg/dL: Borderline high 160-189 mg/dL: High >190 mg/dL: Very High CARDIAC RISK RATIO 3.6 3.4 - 5.0 C [facility] Blood 05/24/2019 9:21 AM EDT 05/24/2019 9:22 AM EDT us Stalin Dupree MD LAB BLOOD ORDERABLES Mellissa copeland Result Performing Organization Address City/State/[facility] Co de Phone Number [facility] [address] [place] [address] from Last 3 Months or Most Recently Relevant to Health Maintenance Insurance GENERIC COMMERCIAL MEDICARE HMO REPLACEMENT GENERIC COMMERCIAL HEALTH [place] MED[place] H[place] REPLACEMENT GENERIC COMMERCIAL GENERIC COMMERCIAL GENERIC COMMERCIAL HEALTH [place] MED[place] H[place] REPLACEMENT GENERIC COMMERCIAL GENERIC COMMERCIAL HEALTH [place] MEDICARE HMO REPLACEMENT [address] [place] [id number] GENERIC COMMERCIAL Member Subscriber Plan / Payer (Ef fective 2012-Present) Name:Rk Arambula Relation to Subscriber:Self Name:Rk Arambula Payer ID:Not on file Group ID:Not on file Type:Indemnity Address: [address] MEDICARE HMO REPLACEMENT GENERIC COMMERCIAL Member Subscriber Plan / Payer (Ef fective 2012-Present) Name:Ralf Rk Relation to Subscriber:Self Name:RalfRk Payer ID:Not on file Group ID:Not on file Type:Indemnity Address: [address] MEDICARE HMO REPLACEMENT Care Teams Speech Language Pathologist Travel Relationship Specialty Start Date End Date Stalin Dupree MD 5 [place] [address] PCP - General Internal Medicine 09/07/18 Additional Source Comments The information contained in this document represents components of the legal health record. It is not the complete legal health record.[facility]
--- OUTSIDE RECORDS SUMMARY | 2025-05-10 15:09 | XMS_ITS | Encounter Summary ---
Author Organization [facility] Address 100 [place] [address] Care Team Providers Care Deflash And Wash Operator Name Role Phone Pcp, No Primary Care Provider Unavailabl e Janel, Yael BHAKTA Unavailable [phone] Reason for Visit * Reason Comments Other JOHNNY Encounter Details Date Type Department Care Team ([facility] Contact Info) Description 06/16/[address] [facility] Urologic Surgery [address] [phone] Don Zhang MD [address] [address] Other (JOHNNY) Social History Tobacco [...] Description 05/16/2025 9:45 AM EDT Office Visit [facility] Urology [place] [address] [place] [address] Don Zhang MD [address] [phone] documented as of this encounter Visit Diagnoses Not on filedocumented in this encounter Care Teams Deflash And Wash Operator Relationship Specialty Start Date End Date Pcp, No 80 [place] [address] PCP - General 05/02/23 Yael Islas RN [address] [address] Oncology Nurse Navigator 05/05/23 documented as of this encounter
--- OUTSIDE RECORDS SUMMARY | 2025-05-10 15:09 | XMS_ITS | Encounter Summary ---
Author Organization [facility] Address 100 [place] [address] Care Team Providers Care Head Animal Trainer Name Role Phone Stalin Dupree MD Primary Care Provider [phone] Pcp, No Primary Care Provider Unavailabl e Carrier, Yael BHAKTA Unavailable [phone] Encounter Details Date Type Department Care Team (Late Contact Info) Description 06/04/2022 Scanned Document [facility] Urologic Surgery [place] [address] [address] Stalin Dupree MD 811 [place] [address] Social History Tobacco Use Types Packs/Day Years [...] [facility] Urology [place] [address] [place] [address] Don Zhang MD 85 [facility] [address] [place], [place] [phone] documented as of this encounter Visit Diagnoses Not on filedocumented in this encounter Care Teams Head Animal Trainer Relationship Specialty Start Date End Date Stalin Dupree MD 1 [place] [address] PCP - General Internal Medicine 08/15/22 05/01/23 Pcp, Tata 80 [place] [address] PCP - General 05/02/23 Yael Islas RN [address] [address] Oncology Nurse Navigator 05/05/23 documented as of this encounter
--- OUTSIDE RECORDS SUMMARY | 2025-05-10 15:09 | XMS_ITS | Encounter Summary ---
Author Organization [facility] Address 100 [place] [address] Care Team Providers Care Director Digital Advertising Name Role Phone Pcp, No Primary Care Provider Unavailabl e Carrier, Yael BHAKTA Unavailable [phone] Encounter Details Date Type Department Care Team ([facility] st Contact Info) Description 05/29/2023 Scanned Document [facility] Urologic Surgery [place] [address] [address] Jyotsna Barrios MD [address] [place] [address] Social History Tobacco Use Types Packs/Day Years [...] place to sleep or slept in a custodial (including now)? No 05/05/2023 Sex and Gender [...] Description 05/16/2025 9:45 AM EDT Office Visit [facility] [address] [address] Don Zhang MD [address] [address] documented as of this encounter Visit Diagnoses Not on filedocumented in this encounter Care Teams Director Digital Advertising Relationship Specialty Start Date End Date Pcp, No 80 [place] [address] PCP - General 05/02/23 Yael Islas RN [address] [address] Oncology Nurse Navigator 05/05/23 documented as of this encounter
--- OUTSIDE RECORDS SUMMARY | 2025-05-10 15:09 | XMS_ITS | Encounter Summary ---
Author Organization [facility] Address 100 [place] [address] Care Team Providers Care Physiology Teacher Name Role Phone Pcp, No Primary Care Provider Unavailabl e Carrier, Yael BHAKTA Unavailable [phone] Reason for Visit * Reason Comments Other Second Opinion Encounter Details Date Type Department Care Team ([facility] Contact Info) Description 04/26/2024 Telephone [facility] Urologic Surgery [address] [phone] Don Zhang MD [address] [address] Other (Second Opinion) Social History [...] place to sleep or slept in a penitentiary (including now)? No 05/05/2023 Sex and Gender [...] frequent UTIs He wasa patient of Tamar Garner's and Dr. Zhang's but has since moved to [place]. Scheduled him with Kelli Peralta [place] on 04/29/24 at 12:30. He is going to have his current urologist send medical records to the [place] office. documented in this encounter Plan of Treatment Upcoming Encounters Date Type Department Care Team (Late st Contact Info) Description 05/16/2025 9:45 AM EDT Office Visit [facility] Urology [place] [address] [place] [address] Don Zhang MD [address] [address] documented as of this encounter Visit Diagnoses Not on filedocumented in this encounter Care Teams Physiology Teacher Relationship Specialty Start Date End Date Pcp, No 80 [place] [address] PCP - General 05/02/23 Yael Islas, LIVIA [address] [address] Oncology Nurse Navigator 05/05/23 documented as of this encounter
--- OUTSIDE RECORDS SUMMARY | 2025-05-10 15:09 | XMS_ITS | Clinical Summary ---
Author Organization Formerly [facility] Address [address] [place] [address] Care Team Providers Care Educational Recruiter Name Role Phone Pcp, No Primary Care Provider Unavailabl e Carrier, Yael BHAKTA Unavailable [phone] Allergies No known active allergies Medications docusate sodium (COLACE) 100 MG capsuleIndicati ons:Prostate cancer (HCC) Take 1 capsule (100 mg total) by mouth 2 (two) times a day as needed for constipation . 60 capsule 01/02/2023 Active magnesium oxide 400 [...] Patient reports he underwent MVP repair at [facility] in 2004. Patient reports occasional swelling in [...] one of his arteries noted on a C. Patient did not tolerate statin therapy. Statin [...] from cardiology and will request risk stratification. Encounters Date Type Department Care Team Description 04/29/2025 Telephone [facility] [address] [place] [address] Don Zhang MD 04/28/2025 Telephone [facility]OLOG[facility] CALL [facility] [address] [facility] [address] [place] [address] Kelli Peralta APRN Other from Last 3 Months Family History Medical History Relation Name Comments [...] place to sleep or slept in a chcf (including now)? No 05/05/2023 Sex and Gender [...] 73 01/17/2023 9:55 AM EDT Temperature 37.7 C (99.9 F) 01/02/2023 7:54 AM EDT Respiratory Rate 18 01/09/2023 10:04 AM EDT Oxygen Saturation 99% 01/17/2023 9:55 AM EDT Inhaled Oxygen Concentration - - Weight 70.3 kg (155 lb) 04/29/2024 12:17 PM EDT per pt Height 172.7 cm (5' 8 ) 04/29/2024 12:17 PM EDT per pt Body Mass Index 23.57 04/29/2024 12:17 PM EDT Plan of Treatment Upcoming Encounters Date Type Department Care Team (Late st Contact Info) Description 05/16/2025 9:45 AM EDT Office Visit [facility]rology [place] [address] [place] [address] Don Zhang MD [address] [address] Health Maintenance Due Date Last Done Comments Advance Care Planning 1950 Hepatitis C Virus Screening 1950 COVID-19 Vaccine (#1) 12/19/1955 DTaP/Tdap/Td Vaccines (1 - Tdap) 1969 Pneumococcal Vaccines 50+ (1 of 2 - PCV) 1969 Zoster (Shingles) Vaccine (1 of 2) 1969 Colonoscopy 12/19/1995 RSV Vaccine 60 years and old er and Patients (1 - Risk 60-74 years 1-dose series) 2010 Influenza Vaccine 03/18/2025 08/26/2005 Hepatitis B Vaccines Aged Out No long er eligible based on patient's age to complete this topic Insurance [address] [place] [address] [employer] [place] MEDICARE Advance Directives * Full Code (Latest Code Status on File) Date Activated Date Inactivated Comments 01/01/2023 2:24 PM * Full Code Date Activated Date Inactivated Comments 01/01/2023 6:51 AM 01/01/2023 2:24 PM Care Teams Educational Recruiter Relationship Specialty Start Date End Date Pcp, No [address] [place] [address] PCP - General 05/02/23 Yael Islas RN [address] [address] Oncology Nurse Navigator 05/05/23
== END 2025-05-10 12:15 | disposition home or self-care (01) ==
LOC: HO.10HDL 12:14
PROVIDERS: Visit Provider Internal Medicine
DX: D64.89 Other specified anemias (principal); I70.8 Atherosclerosis of other arteries; N18.9 Chronic kidney disease, unspecified; Z93.6 Other artificial openings of urinary tract status
CPT/HCPCS: 36415; 80053; 82607; 82728; 82746; 85025

== ENCOUNTER 2025-06-23 09:33 | Outpatient (REF) | payer MEDICARE, SELFPAY ==
--- OUTSIDE RECORDS SUMMARY | 2024-02-24 04:30 | XMS_ITS ---
Author Organization [facility] [place] Address [address] [facility] [address] [place] [address] Care Team Providers Care Auction Clerk Name Role Phone Migration, Provider Unavailable Unavailable REASON FOR VISIT Follow-up Appt Encounters Encounter Location Date Provider Diagnosis [facility] [place] [facility], [address] [place] [phone] 02/24/2024 Provider Migration Plan Of Treatment No Information Progress Notes * GAURI LAWSDOB:1950 (74 yo M)Acc No.[id number]:02/24/2024 Progress Notes Patient: GAURI KELSEY Provider: Danny Rocha :1950 A ge:73 Y S ex:Male Date:02/24/2024 Phone: Address:[address] [place] [address], [address] , [place], [phone] Subjective: * Chief Complaints: * F ollow-up Appt * Ocular Surgical History: Objective: Vision Examination: * Electronic signature of Prov ider Migration on 06/23/2025 at 10:43 AM EST Sign off status: Pending * Provider: Danny Rocha Date: 0 02/24/2024 Generated for [place] walsh/Jerry/Bishnusmitting on: 08/23/2024 10:43 AM EST
--- OUTSIDE RECORDS SUMMARY | 2024-05-17 09:00 | XMS_ITS ---
Author Organization [facility], [place] Address [address] [facility] [address] [place] [address] Care Team Providers Care Vacuum Technician Name Role Phone Migration, Provider Unavailable Unavailable REASON FOR VISIT Follow-up Appt Encounters Encounter Location Date Provider Diagnosis [facility] [place] [facility], [address] [place] [phone] 05/17/2024 Provider Migration Plan Of Treatment No Information Progress Notes * GAURI LAWSDOB:1950 (74 yo M)Acc No.[id number]:05/17/2024 Progress Notes Patient: GAURI KELSEY Provider: Danny Rocha :1950 A ge:73 Y S ex:Male Date:05/17/2024 Phone: Address:[address] [place] [address], [address] , [phone] Subjective: * Chief Complaints: * F ollow-up Appt * Ocular Surgical History: Objective: Vision Examination: * Electronic signature of Prov ider Migration on 06/23/2025 at 10:43 AM EST Sign off status: Pending * Provider: Danny Rocha Date: 0 05/17/2024 Generated for [place] walsh/Jerry/Bishnusmitting on: 1 08/23/2024 10:43 AM EST
--- OUTSIDE RECORDS SUMMARY | 2024-06-16 06:30 | XMS_ITS ---
Author Organization [facility], [place] Address [address] [facility] [address] [place] [address] Care Team Providers Care Corporate Accountant Name Role Phone Migration, Provider Unavailable Unavailable REASON FOR VISIT Follow-up Appt Encounters Encounter Location Date Provider [place] [facility] [place] [facility], [address] [place] [phone] 06/16/2024 Provider Migration Plan Of Treatment No Information Progress Notes * GAURI LAWSDOB:1950 (74 yo M)Acc No.[id number]:06/16/2024 Progress Notes Patient: GAURI KELSEY Provider: Danny Rocha :1950 A ge:73 Y S ex:Male Date:06/16/2024 Phone: Address:[address] [place] [address], [address] , [phone] Subjective: * Chief Complaints: * F ollow-up Appt * Ocular Surgical History: Objective: Vision Examination: * Electronic signature of Prov ider Migration on 06/23/2025 at 10:44 AM EST Sign off status: Pending * Provider: Danny Rocha Date: Generated for [place] walsh/Jerry/Bishnusmitting on: 08/23/2024 10:44 AM EST
--- OUTSIDE RECORDS SUMMARY | 2024-07-19 05:15 | XMS_ITS ---
Author Organization [facility] [place] Address [address] [facility] [address] [place] [address] Care Team Providers Care Bus Driver Supervisor Name Role Phone Migration, Provider Unavailable Unavailable REASON FOR VISIT Follow-up Appt Encounters Encounter Location Date Provider Diagnosis [facility] [place] [facility], [address] [place] [address] 07/19/2024 Provider Migration Plan Of Treatment No Information Progress Notes * GAURI LAWSDOB:1950 (74 yo M)Acc No.[id number]:07/19/2024 Progress Notes Patient: GAURI KELSEY Provider: Danny Rocha :1950 A ge:73 Y S ex:Male Date:07/19/2024 Phone: Address:[address] [place] [address], [address] , [phone] Subjective: * Chief Complaints: * F ollow-up Appt * Ocular Surgical History: Objective: Vision Examination: * Electronic signature of Prov ider Migration on 06/23/2025 at 10:44 AM EST Sign off status: Pending * Provider: Danny ford Migration Date: 09/19/2023 Generated for [place] walsh/Jerry/Bishnusmitting on: 08/23/2024 10:44 AM EST
--- OUTSIDE RECORDS SUMMARY | 2024-07-19 09:30 | XMS_ITS ---
Author Organization [facility], [place] Address [address] [facility] [address] [place] [address] Care Team Providers Care Vp Name Role Phone Migration, Provider Unavailable Unavailable REASON FOR VISIT Follow-up Appt Encounters Encounter Location Date Provider Diagnosis [facility] [place] [facility], [address] [place] [phone] 07/19/2024 Provider Migration Plan Of Treatment No Information Progress Notes * GAURI LAWSDOB:1950 (74 yo M)Acc No.[id number]:07/19/2024 Progress Notes Patient: GAURI KELSEY Provider: Danny Rocha :1950 A ge:73 Y S ex:Male Date:07/19/2024 Phone: Address:[address] [place] [address], [address] , [phone] Subjective: * Chief Complaints: * F ollow-up Appt * Ocular Surgical History: Objective: Vision Examination: * Electronic signature of Prov ider Migration on 06/23/2025 at 10:44 AM EST Sign off status: Pending * Provider: Danny ford Migration Date: 09/19/2023 Generated for [place] walsh/Jerry/Bishnusmitting on: 08/23/2024 10:44 AM EST
[2025-06-23 10:39] LABS: Hematocrit 29.4 % (42.0-52.0); Hemoglobin 8.6 g/dl (14.0-18.0); Mean Corpuscular HGB Conc 29.3 g/dl (31.0-36.0); Mean Corpuscular Hemoglobin 28.3 pg (27.0-33.0); Mean Corpuscular Volume 96.7 fL (80.0-98.0); Platelet Count 197 X10*3/uL (160-400); Red Blood Count 3.04 X10*6/uL (4.60-5.80)
--- OUTSIDE RECORDS SUMMARY | 2025-06-23 10:43 | XMS_ITS | Encounter Summary ---
Author Organization [facility] Address [address] [place] [address] Phone Care Team Providers Care Merchandise Associate Name Role Phone Stalin Dupree MD Primary Care Provider [phone] Encounter Details Date Type Department Care Team (Late st Contact Info) Description 09/07/2018 Transcribe Orders [facility] Phle[facility] Main [address] [place] [address] Stalin Dupree MD [address] [place] [address] Benign hypertension (Primary Dx) Social History Tobacco [...] EST) CREATININE 0.80 0.5 - 1.5 mg/dL [facility] EGFR 92 >59 mL/min/1.7 3m2 [facility] Comment:If patient is black, multiply result by 1.159. Estimated glomerular filtration rate calculated using the CKD-EPI equation. Blood 09/07/2018 9:24 AM EST 09/07/2018 9:28 AM EST Stalin Dupree MD LAB BLOOD BKR ORDERABLES Final Result Performing Organization Address City/State/[facility] Co de Phone Number [address] [address] * Lipid panel (09/07/2018 9:24 AM EST) HDL 39 mg/dL [facility] Comment: Interpretation <40 mg/dL: Low HDL cholesterol (major risk factor for CHD) Greater than or equal to 60 mg/dL: High HDL cholesterol ( negative risk factor for CHD) HDL - cholesterol is affected by a number of factors, e.g. smoking, excerise, hormones, sex and age. CHOLESTEROL 173 0 - 240 mg/dL [facility] TRIGLYCERIDES 42 30 - 160 mg/dL [facility] LDL 126 50 - 129 mg/dL [facility] Comment: LDL levels in terms of risk for coronary heart disease: <100 mg/dL: Optimal 100-129 mg/dL: Near or above optimal 130-159 mg/dL: Borderline high 160-189 mg/dL: High >190 mg/dL: Very High CARDIAC RISK RATIO 4.4 3.4 - 5.0 C [facility] Blood 09/07/2018 9:24 AM EST 09/07/2018 9:28 AM EST Stalin Dupree MD LAB BLOOD BKR ORDERABLES Final Result Performing Organization Address [facility] Co de Phone Number [address] [address] * (ABNORMAL) BUN (09/07/2018 9:24 AM EST) Pathologist [facility] BUN 24(H) 6 - 19 mg/dL [facility] Blood 09/07/2018 9:24 AM EST 09/07/2018 9:28 AM EST Stalin Dupree MD LAB BLOOD BKR ORDERABLES Final Result Performing Organization Address [facility] Co de Phone Number [address] [address] * Potassium (09/07/2018 9:24 AM EST) POTASSIUM 4.3 3.3 - 5.1 mmol/L [facility] Blood 09/07/2018 9:24 AM EST 09/07/2018 9:28 AM EST Stalin Dupree MD LAB BLOOD BKR ORDERABLES Final Result Performing Organization Address City/State/[facility] Co de Phone Number [address] [address] documented in this encounter Visit Diagnoses Diagnosis Benign hypertension- Primary Essential hypertension, benign documented in this encounter Care Teams Merchandise Associate Relationship Specialty Start Date End Date Stalin Dupree MD [address] [place] [address] PCP - General Internal Medicine 09/07/18 documented as of this encounter Additional Source Comments The information contained in this document represents components of the legal health record. It is not the complete legal health record.[facility]
--- OUTSIDE RECORDS SUMMARY | 2025-06-23 10:43 | XMS_ITS ---
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 Overweight with body mass in dex (BMI) of 26 to 26.9 in adult 05/27/2025 Assessment & Plan (05/27/2025 9:57 AM EDT): Body mass index is 26.79 kg/m . Recommend diet, exercise and lifestyle modifications. 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 Required blood transfusion in summer of 2023. H&H= 9.6/31.1 on 02/01/25. Trended H&H which have significantly decreased since 2022. Continue oral iron supplements as prescribed. Continue with plan of care and follow up with provider as previously directed for further management. Stage 4 chronic kidney disease 05/27/2025 Assessment & Plan (05/27/2025 9:59 AM EDT): GFR=30, Cr=2.21, BUN=37 on 02/01/25. Trended values which were previously normal in 2022. Avoid nephrotoxic drugs perioperatively. Recommend renal dosing of medications when appropriate to preserve renal function. Continue with plan of care and follow up as previously directed for further management and treatment. ADHD 05/27/2025 Assessment & Plan (05/27/2025 9:59 AM EDT): Managed with Ritalin as needed. Continue with medication as prescribed. Follow up with provider as directed Anxiety and depression 05/27/2025 Assessment & Plan (05/27/2025 10:00 AM EDT): Not currently on medication therapy or participating in counseling therapy. Patient denies suicidal or homicidal ideation. Mood and affect appropriate in office today. Patient to follow up with provider as previously directed. Does not have primary care provider 05/27/2025 Assessment & Plan (05/27/2025 10:00 AM EDT): Primary care provider is Dr Denise Edgar; located in [place], [place]. PVC (premature ventricular contraction) 05/27/20 Assessment & Plan (05/27/2025 10:05 AM EDT): Not on anticoagulation therapy; on low dose aspirin therapy. Patient reports history of mini heart attack noted on EKG per imaging manager. History of mitral valve prolapse status post bioprosthetic valve >20 yrs ago., History of mitral valve insufficiency; status post mitral valve annuloplasty ring repair. ECHO (11/2021) showed severely dilated bilateral atrium, basal inferior wall hypokinesis, normal EF (55-60%), reduced right ventricular function, mild aortic insufficiency. Followed by [facility] (Dr Nathaniel Alba); last office visit 03/03/25 (note reviewed). 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 Per Dr Alba, Based on his results the patient will be an acceptable risk for any planned urological procedure without the need for any further cardiac intervention . History of myocardial infarction 05/27/2025 Assessment & Plan (05/27/2025 10:05 AM EDT): See above History of mitral valve repl acement with bioprosthetic valve 05/27/2025 Assessment & Plan (05/27/2025 10:05 AM EDT): See above Paroxysmal A-fib 05/27/2025 Assessment & Plan (05/27/2025 10:06 AM EDT): See above Coronary artery disease invo lving [place] coronary artery of [place] heart without angina pectoris 05/27/2025 Assessment & Plan (05/27/2025 10:06 AM EDT): See above Prostate cancer 01/01/2023 Hypertension Assessment & Plan (05/27/2025 9:56 AM EDT): BP 112/52 (asymptomatic). Well-controlled by lifestyle and medication. Continue current medication regimen as prescribed. Follow up with provider as directed Assessment & Plan (12/17/2022 11:43 AM EDT): [...] of mitral valve prolapse Assessment & Plan (05/27/2025 9:57 AM EDT): See above Assessment & Plan (12/17/2022 11:48 AM EDT): Patient reports he underwent MVP repair at [facility] in 2004. Patient reports occasional swelling in [...] from cardiology and will request risk stratification. Current Treatment and Therapy Plans No current plan information found. Past Treatment and Therapy Plans No past plan information found. Lifetime Dose Tracking * Chemical Lifetime Dose Automatic Entry Manual Entr y Dose Area Product(DAP)-micrograys-m2 904.5 microgray-m2 904.5 microgray-m2 0 microgray-m 2
--- OUTSIDE RECORDS SUMMARY | 2025-06-23 10:43 | XMS_ITS | Patient Health Record ---
Author Organization [facility] Address [address] [facility] [place] [address] Care Team Providers Care Electrical And Instrument Engineer Name Role Phone Migration, Provider Unavailable Unavailable Reason For Referral No Information Encounters Encounter Location Date Provider Diagnosis [facility] [place] [address] [address] 07/19/2024 Provider Migration [facility] [address] [address] 07/19/2024 Provider Migration Plan Of Treatment No Information Insurance Providers Payer Name Payer Address Payer Phone Subscriber Number Group Number Insured Name Patient Relationship to Insured Coverage Start Date Coverage End Date [facility] [address] [place] [phone] [id number] GAURI LAWS Self - patient is the insured
--- OUTSIDE RECORDS SUMMARY | 2025-06-23 10:44 | XMS_ITS | Clinical Summary ---
Author Organization [facility] [employer] Address [address] [facility] [place] [address] Phone Care Team Providers Care Public Health Dentist Name Role Phone Denise Edgar MD Primary Care Provider [phone] Allergies Active Allergy Reactions Criticality Noted Date Comments Atorvastatin Liver function tests abnormal Medium 07/28/2024 Milk Containing Products (Dairy) Low 07/28/2024 Medications aspirin 81 mg EC tablet Take 1 tablet (81 mg total) by mouth 1 (one) time each day. 3 Active methylphenidate (RITALIN) 5 mg tablet Take 1 tablet (5 mg total) by mouth 1 (one) time each day. Active metoprolol succinate (TOPROL-XL) 25 mg 24 [...] each day. 90 each 1 5 Active amLODIPine (NORVASC) 5 mg tablet Take 1 tablet (5 mg total) by mouth 1 (one) time each day. 90 each 1 5 06/21/20 Discontinu ed(Reorder ) Active Problems Problem Noted Date Diagnosed Date [...] we will also arrange for a 24-hour electronic systems technician to assess his overall PVC burden. Given [...] stress test and he will have a electronic systems technician in 2 weeks. We will see him [...] Encounters Date Type Department Care Team Description 06/21/2025 Telephone [facility] [address] [place] [address] Nathaniel Alba MD from Last 3 Months Surgical History Surgery Date Site/Laterality Comments MITRAL VALVE REPLACEMENT repair per pt from prolaps PROSTATECTOMY LITHOTRIPSY CYSTOSCOPY W/ URETERAL STENT PLACEMENT CARDIAC CATHETERIZATION DONE ON 02/10/2025 AT [facility] [place] [place] INDICATIONS: Abnormal stress perfusion study Medical History Medical History Date Comments CKD (chronic kidney disease) DX: CKD (chronic kidney disease) Adhd DX:ADHD Coronary artery disease 07/27/2024 Heart valve disease 07/27/2024 Hypertension 07/27/2024 Raynaud's syndrome 07/27/2024 Chronic kidney disease 07/27/2024 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 Gross hematuria 07/27/2024 Hydronephrosis with ureteral stricture Nephrolithiasis 07/27/2024 Prostate cancer ([facility] V24, [facility] V28) Social History Tobacco Use Types Packs/Day [...] (Late st Contact Info) Description 07/30/2025 Telephone [facility] [address] [place] [address] Nathaniel Yin MD [address] [facility] [address] [place] [address] 09/06/2025 9:20 AM EST Office Visit [facility] [address] [place] [address] Nathaniel Alba MD [address] [place] [address] [address] [place] [address] Health Maintenance Due Date Last Done Comments Colorectal Cancer Screening: Colonoscopy 1950 Hepatitis C Screening 07/28/2022 Medicare Annual Wellness Visit 07/28/2022 Social Influencers of Health Screening 07/28/2022 Cholesterol Screening (Lipid Panel) 05/24/2024 05/24/2019 Depression Screening 08/18/2024 COVID-19 Vaccine (8 - Moderna risk season) 2025 04/28/2024, 05/14/2023, 05/01/2022, Additional history exists Influenza Vaccine (#1) 2025 , 05/29/2023, 05/01/2022, Additional history exists Falls Risk Assessment 07/28/2025 07/28/2024 Hypertension/CHF/CAD Annual BMP Blood Test 02/01/2026 05/27/2025, 02/01/2025, 01/02/2023, Additional history exists DTaP,Tdap,and Td Vaccines (4 - Td or [...] Procedure Name Priority Date/Time Associated Diagnosis Comments BASIC METABOLIC PANEL Routine 02/01/2025 12:50 PM EDT Coronary artery disease, unspecified vessel or lesion type, unspecified whether angina present, unspecified whether morongo or transplanted heart from Last 3 Months [...] at an increased atmospheric pressure 07/28/20[address] [place] [address] [employer] [place] MEDIC[place] ADVANTAGE Care Teams Public Health Dentist Relationship Specialty Start Date End Date Denise Edgar MD [address] [place] [address] Dr Youssef [place] [id number] PCP - General Internal Medicine 01/05/25
--- OUTSIDE RECORDS SUMMARY | 2025-06-23 10:44 | XMS_ITS | Clinical Summary ---
Author Organization [facility] Address [address] [address] Phone Care Team Providers Care Smelter Operator Name Role Phone Stalin Dupree MD Primary Care Provider [phone] Allergies No known active allergies Medications acetaminophen (TYLENOL) 325 mg tablet Take 975 mg by mouth 3 (three) times a day as needed for pain (specific location in comments). 4 Active METOPROLOL SUCCINATE ORAL Take 25 mg by mouth daily. 4 Active Bacillus coagulans (PROBIOTIC, B. COAGULANS, ORAL) Take 1 capsule by mouth daily. Active sodium chloride (NS) 0.9 % syringe flush Inject 10 mL into the vein 2 (two) times a day. pre and post iv antibiotic admin and prn Active heparin sodium,porcine/ PF (HEPARIN, PF,) 0.5 unit/mL flush Inject 5 mL into the vein daily. post iv certified medical asst when disconnected . 4 Active Social History [...] (05/24/2019 9:21 AM EDT) HDL 46 mg/dL [facility] Comment: Interpretation <40 mg/dL: Low HDL cholesterol (major risk factor for CHD) Greater than or equal to 60 mg/dL: High HDL cholesterol ( negative risk factor for CHD) HDL - cholesterol is affected by a number of factors, e.g. smoking, excerise, hormones, sex and age. CHOLESTEROL 166 0 - 240 mg/dL [facility] TRIGLYCERIDES 31 30 - 160 mg/dL [facility] LDL 114 50 - 129 mg/dL [facility] Comment: LDL levels in terms of risk for coronary heart disease: <100 mg/dL: Optimal 100-129 mg/dL: Near or above optimal 130-159 mg/dL: Borderline high 160-189 mg/dL: High >190 mg/dL: Very High CARDIAC RISK RATIO 3.6 3.4 - 5.0 C [facility] Blood 05/24/2019 9:21 AM EDT 05/24/2019 9:22 AM EDT us Stalin Dupree MD LAB BLOOD BKR ORDERABLES Final Result Performing Organization Address City/State/[facility] Co de Phone Number [facility] [address] [place] [address] from Last 3 Months or Most Recently Relevant to Health Maintenance Insurance GENERIC COMMERCIAL MEDICARE HMO REPLACEMENT GENERIC COMM[employer]CIAL [employer] [place] MED[place] HMO REPLACEMENT GENERIC COMMERCIAL GENERIC COMMERCIAL GENERIC COMM[employer]CIAL [employer] [place] MED[employer] HMO REPLACEMENT GENERIC COMMERCIAL GENERIC [employer]CIAL [employer] [place] MEDICARE HMO REPLACEMENT [address] [place] [id number] GENERIC COMMERCIAL Member Subscriber Plan / Payer (Ef fective 2012-Present) Name:Rk Aramubla Relation to Subscriber:Self Name:Rk Arambula Payer ID:Not on file Group ID:Not on file Type:Indemnity Address: [address] MEDICARE HMO REPLACEMENT GENERIC COMMERCIAL Member Subscriber Plan / Payer (Ef fective 2012-Present) Name:Ralf Rk Relation to Subscriber:Self Name:RalfRk Payer ID:Not on file Group ID:Not on file Type:Indemnity Address: [address] MEDICARE HMO REPLACEMENT Care Teams Smelter Operator Relationship Specialty Start Date End Date Stalin Dupree MD [address] [place] [address] PCP - General Internal Medicine 09/07/18 Additional Source Comments The information contained in this document represents components of the legal health record. It is not the complete legal health record.[facility]
--- OUTSIDE RECORDS SUMMARY | 2025-06-23 10:44 | XMS_ITS | Encounter Summary ---
Author Organization [facility] Address [address] [place] [address] Care Team Providers Care Stationary Engineer Supervisor Name Role Phone Stalin Dupree MD Primary Care Provider [phone] Pcp, No Primary Care Provider Unavailabl e Carrier, Yael BHAKTA Unavailable [phone] Encounter Details Date Type Department Care Team (Late st Contact Info) Description 05/06/2022 Scanned Document [facility] Urologic Surgery [address] [address] Stalin Dupree MD [address] [place] [address] Social History Tobacco Use Types Packs/Day Years [...] on filedocumented in this encounter Care Teams Stationary Engineer Supervisor Relationship Specialty Start Date End Date Stalin Dupree MD [address] [place] [address] PCP - General Internal Medicine 08/15/22 05/01/23 Pcp, No [address] [place] [address] PCP - General 05/02/23 Carrier, LIVIA Conley [address] [address] Oncology Nurse Navigator 05/05/23 documented as of this encounter
--- OUTSIDE RECORDS SUMMARY | 2025-06-23 10:44 | XMS_ITS | Encounter Summary ---
Author Organization [facility] Address [address] [place] [address] Care Team Providers Care Surveillance Dual Rate Officer Name Role Phone Stalin Dupree MD Primary Care Provider [phone] Pcp, No Primary Care Provider Unavailabl e Carrier, Yael BHAKTA Unavailable [phone] Encounter Details Date Type Department Care Team (Late st Contact Info) Description 05/23/2022 Scanned Document [facility] Urologic Surgery [address] [address] Stalin Dupree MD [address] [place] [address] Social History Tobacco Use Types Packs/Day Years [...] on filedocumented in this encounter Care Teams Surveillance Dual Rate Officer Relationship Specialty Start Date End Date Stalin Dupree MD [address] [place] [address] PCP - General Internal Medicine 08/15/22 05/01/23 Pcp, No [address] [place] [address] PCP - General 05/02/23 Carrier, LIVIA Conley [address] [address] Oncology Nurse Navigator 05/05/23 documented as of this encounter
--- OUTSIDE RECORDS SUMMARY | 2025-06-23 10:44 | XMS_ITS | Patient Health Record ---
Author Organization [facility] Address [address] [place] [address] Care Team Providers Care Display Associate Name Role Phone Stalin Dupree MD Primary Care Provider UnavailBoyd Cordoba Unavailable [phone] Reason For Referral No Information Medications Medication SIG (Take, Route, Frequency, Duration) Notes Start Date End Date Status amLODIPine Besylate 5 MG Orally Active ASA Active Problems Problem Type SNOMED Code ICD Code Onset Dates Problem Status W/U Status Risk Notes Problem Acquired hallux rigidus (2684828) Hallux rigidus, right foot (M20.21) Active confirmed Plan Of Treatment Pending Test Test Name Order Date X ray : Foot, right 2V 09/16/2016 Insurance Providers Payer Name Payer Address Payer Phone Subscriber Number Group Number Insured Name Patient Relationship to Insured Coverage Start Date Coverage End Date [employer] [place] Medicare Advantage [facility] [address] [place] [address] [id number] Rk Arambula Self - patient is the insured Medical (General) History Medical History History ICD Code High blood pressure Psoriasis Measles Mumps Chicken pox Surgical History Surgery Date(Month/Year) mitral valve repair 2005
--- OUTSIDE RECORDS SUMMARY | 2025-06-23 10:44 | XMS_ITS ---
Author Organization [facility] [employer] Address [address] [place] [address] Phone Care Team Providers Care Livestock Feeder Name Role Phone Denise Edgar MD Primary Care Provider Active Problems Problem Noted Date Diagnosed Date [...] we will also arrange for a 24-hour sample box maker to assess his overall PVC burden. Given [...] stress test and he will have a sample box maker in 2 weeks. We will see him [...] Idiopathic hydronephrosis 07/27/2024 Nephrolithiasis 07/27/2024 Prostate cancer ([facility] V24, [facility] V28) 01/01 Current Treatment and Therapy Plans No current plan information found. Past Treatment and Therapy Plans No past plan information found. Lifetime Dose Tracking * Chemical Lifetime Dose Automatic Entry Manual Entr y Fluoro Time 0.1 minutes 0.1 minutes 0 minutes Air Kerma 1 mGy 1 mGy 0 mGy
--- OUTSIDE RECORDS SUMMARY | 2025-06-23 10:44 | XMS_ITS | Clinical Summary ---
Author Organization [facility] Address [address] [place] [address] Care Team Providers Care Supervisor Car Installations Name Role Phone Unavailable Primary Care Provider [...]
--- OUTSIDE RECORDS SUMMARY | 2025-06-23 10:44 | XMS_ITS | Encounter Summary ---
Author Organization [facility] Address [address] [place] [address] Care Team Providers Care Japanese Tutor Name Role Phone Stalin Dupree MD Primary Care Provider [phone] Pcp, No Primary Care Provider Unavailabl e Carrier, Yael BHAKTA Unavailable [phone] Encounter Details Date Type Department Care Team (Late st Contact Info) Description 03/27/2022 Scanned Document [facility] Urologic Surgery [address] [address] Stalin Dupree MD [address] [place] [id number] Social History Tobacco Use Types Packs/Day Years [...] on filedocumented in this encounter Care Teams Japanese Tutor Relationship Specialty Start Date End Date Stalin Dupree MD [address] [place] [phone] PCP - General Internal Medicine 08/15/22 05/01/23 Pcp, No [address] [place] [address] PCP - General 05/02/23 Carrier, LIVIA Conley [address] [address] Oncology Nurse Navigator 05/05/23 documented as of this encounter
--- OUTSIDE RECORDS SUMMARY | 2025-06-23 10:44 | XMS_ITS ---
Care Plan Created on: June 23, 2025 Rk [place] : 1950 Sex: Male Author Organization [facility] [employer] Address [address] [facility] [place] [address] Phone Care Team Providers Care Smoke Control Supervisor Name Role Phone Denise Edgar MD Primary Care Provider [phone] Active Problems Problem Noted Date Diagnosed Date [...] we will also arrange for a 24-hour business development manager to assess his overall PVC burden. [...] stress test and he will have a business development manager in 2 weeks. 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
--- OUTSIDE RECORDS SUMMARY | 2025-06-23 10:45 | XMS_ITS | Encounter Summary ---
Author Organization [facility] Address [address] [place] [address] Care Team Providers Care Armoured Car Escort Name Role Phone Pcp, No Primary Care Provider Unavailabl e Carrier, Yael BHAKTA Unavailable [phone] Encounter Details Date Type Department Care Team ([facility] st Contact Info) Description 05/29/2023 Scanned Document [facility] Urologic Surgery [place] [address] [address] Jyotsna Barrios MD [address] [place] [id number] Social History Tobacco Use Types Packs/Day Years [...] on filedocumented in this encounter Care Teams Armoured Car Escort Relationship Specialty Start Date End Date Pcp, No [address] [place] [address] PCP - General 05/02/23 Yael Islas RN [address] [address] Oncology Nurse Navigator 05/05/23 documented as of this encounter
--- OUTSIDE RECORDS SUMMARY | 2025-06-23 10:45 | XMS_ITS | Clinical Summary ---
Author Organization [facility] Address [address] [place] [address] Care Team Providers Care Wind Turbine Engineer Name Role Phone Pcp, No Primary Care Provider Unavailabl e Carrier, Yael BHAKTA Unavailable [phone] Allergies Active Allergy Reactions Criticality Noted Date Comments Statins Hepatitis/Abnormal Liver Function Medium Medications magnesium oxide 400 (240 Mg) MG Tab tablet Take 1 tablet (400 mg total) by mouth every morning. Take 2 hours apart from other medications; take with food Active metoPROLOL SUCCINATE (TOPROL-XL) 50 MG 24 hr tablet Take 0.5 tablets (25 mg total) by mouth every morning. Active ferrous sulfate 325 (65 FE) MG tablet Take 1 tablet (325 mg total) by mouth every morning. Active aspirin enteric coated 81 MG EC tablet Take 1 tablet (81 mg total) by mouth every morning. 06/04/2024 Active methylphenidate (RITALIN LA) 10 MG 24 hr capsule Take 1 capsule (10 mg total) by mouth every morning. Active ascorbic acid (VITAMIN C) 1000 MG tablet Take 1 tablet (1,000 mg total) by mouth every morning. Active Active Problems Problem Noted Date Diagnosed [...] provider is Dr Denise Edgar; located in [place], [place]. PVC (premature ventricular contraction) 05/27/20 Assessment & Plan (05/27/2025 10:05 AM EDT): Not on anticoagulation therapy; on low dose aspirin therapy. Patient reports history of mini heart attack noted on EKG per insolvency practitioner. History of mitral valve prolapse status post bioprosthetic valve >20 yrs ago., History of mitral valve insufficiency; status post mitral valve annuloplasty ring repair. ECHO (11/2021) showed severely dilated bilateral atrium, basal inferior wall hypokinesis, normal EF (55-60%), reduced right ventricular function, mild aortic insufficiency. Followed by [facility] (Dr Nathaniel Alba); last office visit 03/03/25 (note reviewed). Per insolvency practitioner note, patient has frequent PVCs likely due [...] See above Coronary artery disease invo lving sh[place]f ira coronary artery of [place] ira heart without angina pectoris 05/27/2025 Assessment & [...] Patient reports he underwent MVP repair at [facility] in 2004. Patient reports occasional swelling in [...] Encounters Date Type Department Care Team Description 06/13/2025 2:00 PM EDT Office Visit [facility] Urologic Surgery [address] [place] [address] Don Zhang MD Bilateral hydronephrosis (Primary Dx); Ureteral stricture 06/13/2025 Travel 05/31/2025 1:00 PM EDT - 05/31/2025 2:15 PM EDT Surgery [facility] [address] [place] [phone] Suyapa Salmon MD CYSTOSCOPY RETROGRADE PYELOGRAMS,BILATERAL URETERAL CATHETERIZATION 05/31/2025 12:18 PM EDT Anesthesia Event [facility] [address] [place] [address] Alessia Mcdaniel MD 05/31/2025 11:05 AM EDT - 05/31/2025 2:25 PM EDT Hospital Encounter [facility] [address] [place] [phone] Suyapa Salmon MD Discharge Disposition: Home or Self Care 05/31/2025 Travel 05/27/2025 4:58 PM EDT - 05/27/2025 11:59 PM EDT Hospital Encounter [facility] [address] [place] [phone] Cherelle Coronado, SOFTWARE QUALITY TEST ENGINEER Discharge Disposition: Home or Self Care 05/27/2025 9:30 AM EDT Pre-Admission Testing [facility] in [address] [place] [phone] Cherelle Coronado, SOFTWARE QUALITY TEST ENGINEER Preop examination (Primary Dx); Bilateral hydronephrosis; Cystitis, radiation; Primary hypertension; History of prostate cancer; History of mitral valve prolapse; Overweight with body mass index (BMI) of 26 to 26.9 in adult; Iron deficiency anemia due to chronic blood loss; Stage 4 chronic kidney disease (HCC); Attention deficit hyperactivity disorder (ADHD), unspecified ADHD type; Anxiety and depression; Does not have primary care provider; PVC (premature ventricular contraction); History of myocardial infarction; History of mitral valve replacement with bioprosthetic valve; Paroxysmal A-fib (HCC); Coronary artery disease involving sh[place]f ira coronary artery of sh[place] ira heart without angina pectoris 05/27/2025 Travel 05/18/2025 Travel 05/16/2025 11:30 AM EDT Ancillary Procedure [facility] [address] [place] [address] Provider, File Room 05/16/2025 11:25 AM EDT Ancillary Procedure [facility] [address] [place] [address] Provider, File Room 05/16/2025 11:20 AM EDT Ancillary Procedure [facility] [address] [place] [address] Provider, File Room 05/16/2025 11:15 AM EDT Ancillary Procedure [facility] [address] [place] [address] Provider, File Room 05/16/2025 11:15 AM EDT Ancillary Procedure [facility] [address] [place] [address] Provider, File Room 05/16/2025 11:10 AM EDT Ancillary Procedure [facility] [address] [place] [address] Provider, File Room 05/16/2025 11:10 AM EDT Ancillary Procedure [facility] [address] [place] [address] Provider, File Room 05/16/2025 11:05 AM EDT Ancillary Procedure [facility] [address] [place] [address] Provider, File Room 05/16/2025 11:05 AM EDT Ancillary Procedure [facility] [address] [place] [address] Provider, File Room 05/16/2025 11:00 AM EDT Ancillary Procedure [facility] [address] [place] [address] Provider, File Room 05/16/2025 11:00 AM EDT Ancillary Procedure [facility] [address] [place] [address] Provider, File Room 05/16/2025 11:00 AM EDT Ancillary Procedure [facility] [address] [place] [address] Provider, File Room 05/16/2025 10:55 AM EDT Ancillary Procedure [facility] [address] [place] [address] Provider, File Room 05/16/2025 10:55 AM EDT Ancillary Procedure [facility] [address] [place] [address] Provider, File Room 05/16/2025 10:55 AM EDT Ancillary Procedure [facility] [address] [place] [address] Provider, File Room 05/16/2025 10:50 AM EDT Ancillary Procedure [facility] [address] [place] [address] Provider, File Room 05/16/2025 10:50 AM EDT Ancillary Procedure [facility] [address] [place] [address] Provider, File Room 05/16/2025 10:50 AM EDT Ancillary Procedure [facility] [address] [place] [address] Provider, File Room 05/16/2025 10:45 AM EDT Ancillary Procedure [facility] [address] [place] [address] Provider, File Room 05/16/2025 10:45 AM EDT Ancillary Procedure [facility] [address] [place] [address], [place] [address] Provider, File Room 05/16/2025 10:45 AM EDT Ancillary Procedure [facility] [address] [place] [address] Provider, File Room 05/16/2025 10:45 AM EDT Ancillary Procedure [facility] [address] [place] [address], [place] [address] Provider, File Room 05/16/2025 10:40 AM EDT Ancillary Procedure [facility] [address] [place] [address], [place] [address] Provider, File Room 05/16/2025 10:40 AM EDT Ancillary Procedure [facility] [address] [place] [address] Provider, File Room 05/16/2025 10:40 AM EDT Ancillary Procedure [facility] [address] [place] [address] Provider, File Room 05/16/2025 10:40 AM EDT Ancillary Procedure [facility] [address] [place] [address] Provider, File Room 05/16/2025 10:40 AM EDT Ancillary Procedure [facility] [address] [place] [address], [place] [address] Provider, File Room 05/16/2025 10:35 AM EDT Ancillary Procedure [facility] [address] [place] [address] Provider, File Room 05/16/2025 10:35 AM EDT Ancillary Procedure [facility] [address] [place] [address] Provider, File Room 05/16/2025 10:35 AM EDT Ancillary Procedure [facility] [address] [place] [address] Provider, File Room 05/16/2025 10:35 AM EDT Ancillary Procedure [facility] [address] [place] [address] Provider, File Room 05/16/2025 10:35 AM EDT Ancillary Procedure [facility] [address] [place] [address] Provider, File Room 05/16/2025 9:45 AM EDT Office Visit [facility] Urology [address] [phone] Don Zhang MD Prostate cancer (HCC) (Primary Dx); Microhematuria; H/O radical prostatectomy; Bilateral hydronephrosis; Ureteral stricture 05/16/2025 Travel from Last 3 Months Family History Medical [...] drink = 0.6 oz pur e alcohol) AUDIT-C Answer Date Recorded Q1: How often do you have a drink containing alc ohol? 2-4 times a month 05/18/2025 Q2: How many drinks containi ng alcohol do you have on a typical day when you are drinking? 1 or 2 05/18/2025 Q3: How often do you have si x or more drinks on one occasion? Never 05/18/2025 Overall Financial Resource Strain (CARDIA) Answe r [...] Sign Reading Time Taken Comments Blood Pressure 134/63 05/31/2025 2:00 PM EDT Pulse 67 05/31/2025 2:00 PM EDT Temperature 36 C (96.8 F) 05/31/2025 2:00 PM EDT Respiratory Rate 17 05/31/2025 2:00 PM EDT Oxygen Saturation 100% 05/31/2025 2:00 PM EDT Inhaled Oxygen Concentration - - Weight 70.3 kg (155 lb) 06/13/2025 1:43 PM EDT p er pt Height 167.6 cm (5' 6 ) 06/13/2025 1:43 PM EDT p er pt Body Mass Index 25.02 06/13/2025 1:43 PM EDT Plan of Treatment Health Maintenance Due Date Last Done Comments Advance Care Planning 1950 Hepatitis C Virus Screening 1950 COVID-19 Vaccine (#1) 12/19/1955 DTaP/Tdap/Td Vaccines (1 - Tdap) 1969 Pneumococcal Vaccines 50+ (1 of 2 - PCV) 1969 Zoster (Shingles) Vaccine (1 of 2) 1969 Colonoscopy 12/19/1995 RSV Vaccine 50 years and old er and Patients (1 - Risk 50-74 years 1-dose series) 2000 Influenza Vaccine 03/18/2025 08/26/2005 Hepatitis B Vaccines Aged Out No long er eligible based on patient's age to complete this topic Procedures Procedure Name Priority Date/Time Associated Diagnosis Comments FL UROGRAM RETROGRADE IN OR (AUTO) (HH) Routine 05/31/2025 12:55 PM EDT ANES INTUBATION Routine 05/31/2025 12:32 PM EDT LA RENAL NDSC NEPHROTOMY W/BIOPSY 05/31/2025 12:08 PM EDT Bilateral hydronephrosis Cystitis, radiation LA NJX CSTOGRAPY/VOIDING URETHROCSTOGRAPY 05/31/2025 12:08 PM EDT Bilateral hydronephrosis Cystitis, radiation HX OUTSIDE ORDER Routine 05/27/2025 11:0 9 PM EDT ECG 12-LEAD Routine 05/27/2025 9:34 AM EDT Preop examination COMPLETE BLOOD COUNT, WITH DIFFERENTIAL Routine 05/27/2025 9:24 AM EDT BASIC METABOLIC PANEL Routine 05/27/2025 9:24 AM EDT URINE CULTURE Routine 05/24/2025 1:48 PM EDT Urinary tract infection without hematuria, site unspecified PSA, POST PROSTATECTOMY Routine 05/16/20 2:20 PM EDT Prostate cancer (HCC) H/O radical prostatectomy DOUG ARCHIVE FOR REFERENCE ONLY XA Routine 05/16/2025 11:15 AM EDT DOUG ARCHIVE FOR REFERENCE ONLY XA Routine 05/16/2025 11:10 AM EDT DOUG ARCHIVE FOR REFERENCE ONLY XA Routine 05/16/2025 11:05 AM EDT DOUG ARCHIVE FOR REFERENCE ONLY US Routine 05/16/2025 11:00 AM EDT DOUG ARCHIVE FOR REFERENCE ONLY XA Routine 05/16/2025 11:00 AM EDT DOUG ARCHIVE FOR REFERENCE ONLY US Routine 05/16/2025 10:55 AM EDT DOUG ARCHIVE FOR REFERENCE ONLY XA Routine 05/16/2025 10:55 AM EDT DOUG ARCHIVE FOR REFERENCE ONLY US Routine 05/16/2025 10:50 AM EDT DOUG ARCHIVE FOR REFERENCE ONLY XA Routine 05/16/2025 10:50 AM EDT DOUG ARCHIVE FOR REFERENCE ONLY US Routine 05/16/2025 10:45 AM EDT DOUG ARCHIVE FOR REFERENCE ONLY XA Routine 05/16/2025 10:45 AM EDT DOUG ARCHIVE FOR REFERENCE ONLY NM Routine 05/16/2025 10:40 AM EDT DOUG ARCHIVE FOR REFERENCE ONLY US Routine 05/16/2025 10:40 AM EDT DOUG ARCHIVE FOR REFERENCE ONLY XA Routine 05/16/2025 10:[address] ABDOMEN ARCHIVE FOR REFERENCE ONLY Routine 05/16/2025 10:[address] ABDOMEN ARCHIVE FOR REFERENCE ONLY Routine 05/16/2025 10:[address] ABDOMEN ARCHIVE FOR REFERENCE ONLY Routine 05/16/2025 10:[address] ABDOMEN ARCHIVE FOR REFERENCE ONLY Routine 05/16/2025 10:[address] ABDOMEN ARCHIVE FOR REFERENCE ONLY Routine 05/16/2025 10:[address] ABDOMEN ARCHIVE FOR REFERENCE ONLY Routine 05/16/2025 10:[address] HEAD ARCHIVE FOR REFERENCE ONLY Routine 05/16/2025 10:[address] ABDOMEN ARCHIVE FOR REFERENCE ONLY Routine 05/16/2025 10:[address] ABDOMEN ARCHIVE FOR REFERENCE ONLY Routine 05/16/2025 10:[address] ABDOMEN ARCHIVE FOR REFERENCE ONLY Routine 05/16/2025 10:[address] ABDOMEN ARCHIVE FOR REFERENCE ONLY Routine 05/16/2025 10:35 AM EDT CR CHEST ARCHIVE FOR REFERENCE ONLY Routine 05/16/2025 10:35 AM EDT DOUG ARCHIVE FOR REFERENCE ONLY CR Routine 05/16/2025 10:35 AM EDT DOUG ARCHIVE FOR REFERENCE ONLY NM Routine 05/16/2025 10:35 AM EDT DOUG ARCHIVE FOR REFERENCE ONLY US Routine 05/16/2025 10:35 AM EDT DOUG ARCHIVE FOR REFERENCE ONLY XA Routine 05/16/2025 10:35 AM EDT CR CHEST ARCHIVE FOR REFERENCE ONLY Routine 05/16/2025 10:34 AM EDT CR CHEST ARCHIVE FOR REFERENCE ONLY Routine 05/16/2025 10:34 AM EDT from Last 3 Months Results * FL Urogram Retrograde in OR (Auto) (HH) (05/31/2025 12:55 PM EDT) Anatomical Region Laterality Modality Right Radio Fluoroscop y 05/31/2025 12:1 8 PM EDT Impressions 06/02/2025 8:57 AM EDT Fluoroscopic guidance for procedure. Correlate with appropriate interval. Narrative 06/02/2025 8:57 AM EDT EXAMINATION: FL RETROGRADE UROGRAM CLINICAL INFORMATION: Bilateral hydronephrosis. COMPARISON: None available. TECHNIQUE: Fluoroscopic guidance for procedure. FINDINGS: Bilateral nephrostomy catheters. Cystoscope is seen projecting over the pelvis. There is retrograde injection of contrast which opacifies bilateral ureters and right renal collecting system. Severe right hydronephrosis. FLUOROSCOPY TIME: 1.47 minutes DOSE AREA PRODUCT: 905 uGy-m2 (microgray-meter squared) Procedure Note Don Ponce MD - 06/02/2025 EXAMINATION: FL RETROGRADE UROGRAM CLINICAL INFORMATION: Bilateral hydronephrosis. COMPARISON: None available. TECHNIQUE: Fluoroscopic guidance for procedure. FINDINGS: Bilateral nephrostomy catheters. Cystoscope is seen projecting over the pelvis. There is retrograde injection of contrast which opacifies bilateral ureters and right renal collecting system. Severe right hydronephrosis. FLUOROSCOPY TIME: 1.47 minutes DOSE AREA PRODUCT: 905 uGy-m2 (microgray-meter squared) IMPRESSION: Fluoroscopic guidance for procedure. Correlate with appropriate interval. Suyapa Salmon MD IMG FLUOROSCOPY ORDERABLES Mellissa l Result * ANES INTUBATION (05/31/2025 12:32 PM EDT) Narrative Alessia Mcdaniel MD - 05/31/2025 12:32 PM EDT Alessia Mcdaniel MD 05/31/2025 12:32 PM Anesthesia Procedure Note - LMA insertion Patient Name: Rk Arambula : 1950 Patient location: OR Procedure indications: airway protection Procedure diagnosis: Anesthesia Performed by: Anesthesiologist Alessia Mcdaniel MD Chart Verification Airway: airway not difficult Preanesthetic Checklist monitors and equipment checked. Patient's pre-procedure mental status: awake The patient was sedated prior to procedure. Current level of sedation: deep Airway not difficult - Procedure Details Intubation route: oral Intubation method: LMA 4 (igel), blind Number of attempts: 1 Patient status for intubation: unresponsive and sedated Patient position: supine Preoxygenation: BVM Quality of BVM: easy Placement confirmation method: chest rise and ETCO2 monitor Dentition: same as baseline Complications: no complications us Alessia Mcdaniel MD LA ANESTHESIA Final Result * OUTSIDE ORDER (05/27/2025 11:09 PM EDT) us External Provider HX AMB PROCEDURES Final Res ult * ECG 12 lead (05/27/2025 9:34 AM EDT) [facility] Ventricular rate 71 BPM EKG [facility] Atrial rate 71 BPM EKG [facility] P-R interval 206 ms EKG [facility] QRS duration 100 ms EKG [facility] Q-T interval 400 ms EKG [facility] QTC calculation (Bazett) 434 ms EKG [facility] P axis 44 degrees EKG [facility] R axis 31 degrees EKG [facility] T axis 58 degrees [facility] 05/27/2025 9:34 AM EDT Narrative EKG [facility] - 05/28/2025 1:22 PM EDT Sinus rhythm with frequent and consecutive Premature ventricular complexes Nonspecific T wave abnormality Abnormal ECG When compared with ECG of 17-Dec-2022 11:54, Premature ventricular complexes are now Present Confirmed by Tabatha De Leon MD ([id number]) on 05/28/2025 1:22:28 PM Procedure Note Tabatha De Leon MD - 05/28/2025 Sinus rhythm with frequent and consecutive Premature ventricularcomplexes Nonspecific T wave abnormality Abnormal ECG When compared with ECG of 17-Dec-2022 11:54, Premature ventricular complexes are now Present Confirmed by Taabtha De Leon MD ([id number]) on 05/28/2025 1:22:28 PM us Cherelle Coronado SOFTWARE QUALITY TEST ENGINEER ECG ORDERABLES Final Result [facility] * (ABNORMAL) Complete Blood Count, with Differential (05/27/2025 9:24 AM EDT) White Blood Cell Count 5.5 4.0 - 11.0 Thou/uL 05/27/2025 5:46 PM [facility] Platelet Count 211 150 - 450 Thou/uL 05/27/2025 5:46 PM [facility] Hemoglobin 10.3(L) 13.0 - 17.7 g/dL 05/27/2025 5:46 PM [facility] Hematocrit 34.9(L) 39.0 - 54.0 % 05/27/2025 5:46 PM [facility] Red Blood Cell Count 3.44(L) 4.50 - 6.20 Mil/uL 05/27/2025 5:46 PM [facility] MCV 102(H) 80 - 100 fL 05/27/2025 5:46 PM [facility] MCH 29.9 27.0 - 31.0 pg 05/27/2025 5:46 PM [facility] MCHC 29.5(L) 30.0 - 36.0 g/dL 05/27/2025 5:46 PM [facility] RDW 15.7(H) 11.5 - 14.5 % 05/27/2025 5:46 PM [facility] MPV 10.4 7.5 - 12.5 fL 05/27/2025 5:46 PM [facility] Neutrophils Auto 57.5 % 05/27/20 5:46 PM [facility] Immature Granulocytes 0.5 % 05/27/2025 5:46 PM [facility] Lymphocytes Auto 27.5 % 05/27/20 5:46 PM [facility] Monocytes Auto 10.9 % 05/27/2025 5:46 PM [facility] Eosinophils Auto 2.7 % 05/27/20 5:46 PM [facility] Basophils Auto 0.9 % 05/27/2025 5:46 PM [facility] Abs Neutrophils Auto 3.17 2.00 - 7.50 Thou/uL 05/27/2025 5:46 PM [facility] Abs Immature Granulocytes 0.03 0.00 - 0.10 Thou/uL 05/27/2025 5:46 PM EDT [facility] Abs Lymphocytes Auto 1.52 1.50 - 4.50 Thou/uL 05/27/2025 5:46 PM EDT [facility] Abs Monocytes Auto 0.60 0.20 - 1.50 Thou/uL 05/27/2025 5:46 PM EDT [facility] Abs Eosinophils Auto 0.15 0.00 - 0.70 Thou/uL 05/27/2025 5:46 PM EDT [facility] Abs Basophils Auto 0.05 0.00 - 0.20 Thou/uL 05/27/2025 5:46 PM [facility] Blood specimen / Unknown 05/27/2025 9:24 AM EDT 05/27/2025 5:16 PM EDT us Cherelle Coronado SOFTWARE QUALITY TEST ENGINEER LAB BLOOD ORDERABLES [place] [address], [place] [address] * (ABNORMAL) Basic Metabolic Panel (05/27/2025 9:24 AM EDT) Glucose 92 65 - 99 mg/dL 05/27/2025 6:03 PM [facility] Comment:Fasting: <100 mg/dL, Non-Fasting: <200 mg/dL (ADA 2004) Blood Urea Nitrogen (BUN) 30(H) 8 - 21 mg/dL 05/27/2025 6:03 PM [facility] Creatinine 2.35(H) 0.50 - 1.30 mg/dL 05/27/2025 6:03 PM [facility] eGFR 28(L) >59 05/27/2025 6:03 PM [facility] Comment:CKD-EPI (2020) in mL /min/1.73 sq meters. Sodium 140 136 - 145 mmol/L 05/27/2025 6:03 PM [facility] Potassium 4.4 3.4 - 5.3 mmol/L 05/27/2025 6:03 PM [facility] Chloride 106 98 - 107 mmol/L 05/27/2025 6:03 PM EDT [facility] CO2 21(L) 22 - 33 mmol/L 05/27/2025 6:03 PM EDT [facility] Anion Gap 13 7 - 17 05/27/2025 6:03 PM EDT [facility] Calcium 9.5 8.7 - 10.5 mg/dL 05/27/2025 6:03 PM EDT [facility] BUN/Creatinine Ratio 13 10.0 - 25.0 Ratio 05/27/2025 6:03 PM EDT [facility] 05/27/2025 9:24 AM EDT 05/27/2025 5:16 PM EDT Cherelle Coronado APRN LAB BLOOD ORDERABLES Final Res ult Performing Organization Address [facility]/ZIP Co de Phone Number [address] [address], [address] [address] * Urine Culture (05/24/2025 1:48 PM EDT) Culture SEE NOTE [employer] Comment: CULTURE, URINE, ROUTINE Micro Number: [id number] Test Status: Final Specimen Source: Urine, clean catch Specimen Quality: Adequate Result: Mixed genital soco isolated. These superficial bacteria are not indicative of a urinary tract infection. No further organism identification is warranted on this specimen. If clinically indicated, recollect clean-catch, mid-stream urine and transfer immediately to Urine Culture Transport Tube. 05/24/2025 1:48 PM EDT 05/24/2025 1:48 PM EDT Suyapa Salmon MD LAB AMB MICRO ORDERABLES Final Result [employer] [address] [place] [phone] * PSA, Post Prostatectomy (05/16/2025 2:20 PM EDT) PSA, Post Prostatectomy 0.04 ng/mL [employer] Comment: PSA values obtained with different assay methods or kits cannot be used interchangeably. This test was performed using the [employer] DxI method. PSA, ICMA is not to be used as a diagnostic procedure without confirmation of the diagnosis by another established product or procedure. The lower limit of accurate quantification for this assay is 0.02 ng/mL. PSA values less than 0.02 ng/mL cannot be accurately measured and will be reported as less than 0.02 ng/mL. Specimens with PSA levels below the lower limit of accurate quantification should be considered as negative. In patients with a negative result for post prostatectomy PSA, serial monitoring of PSA levels at regular intervals, along with physical examinations and other tests, may help to detect recurrent prostate cancer. REFERENCE RANGES for PSA: <0.10 ng/mL AFTER RADICAL PROSTATECTOMY. < OR = 4.00 ng/mL IN HEALTHY MALES WITHOUT PROSTATECTOMY. Blood Blood specimen / Unknown 05/16/2025 2:20 PM EDT 05/16/2025 2:20 PM EDT [facility] - 05/17/2025 5:38 PM EDT FASTING:NO FASTING: NO Don Zhang MD LAB BLOOD ORDERABLES Final Re sult Performing Organization Address [facility] Co de Phone Number [email or web address] [address] [place] [phone] * DUOG Archive for reference only XA (05/16/2025 11:15 AM EDT) Only the most recent of9 resultswithin the time period is included. [facility] 05/16/2025 10:35 AM EDT This order has been auto-finalized and does not contain a result. us File Room Provider IMG DIGITIZE FILMS Final Resu lt Performing Organization Address [facility]/ZIP Co de Phone Number [employer] [phone] * DOUG Archive for reference only [place] (05/16/2025 11:00 AM EDT) Only the most recent of6 resultswithin the time period is included. [facility] 05/16/2025 10:36 AM EDT This order has been auto-finalized and does not contain a result. us File Room Provider IMG DIGITIZE FILMS Final Resu lt Performing Organization Address [facility] de Phone Number BRIANDA [phone] * DOUG Archive for reference only [place] (05/16/2025 10:40 AM EDT) Only the most recent of2 resultswithin the time period is included. [facility] - 05/16/2025 10:35 AM EDT This order has been auto-finalized and does not contain a result. us File Room Provider IMG DIGITIZE FILMS Final Resu lt Performing Organization Address [facility] de Phone Number BRIANDA [phone] * CT Abdomen Archive for Reference Only (05/16/2025 10:38 AM EDT) Only the most recent of10 resultswithin the time period is included. [facility] 05/16/2025 10:38 AM EDT This study has been auto finalized and does not contain a result. us File Room Provider IMG DIGITIZE FILMS Final Resu lt Performing Organization Address [facility] de Phone Number BRIANDA [phone] * CT Head Archive for Reference Only (05/16/2025 10:36 AM EDT) [facility] - 05/16/2025 10:36 AM EDT This study has been auto finalized and does not contain a result. us File Room Provider IMG DIGITIZE FILMS Final Resu lt Performing Organization Address [facility] de Phone Number BRIANDA [phone] * CR Chest Archive for Reference only (05/16/2025 10:35 AM EDT) Only the most recent of3 resultswithin the time period is included. [facility] - 05/16/2025 10:35 AM EDT This study has been auto finalized and does not contain a result. us File Room Provider IMG DIGITIZE FILMS Final Resu lt BRIANDA [phone] * DOUG Archive for reference only RF (05/16/2025 10:35 AM EDT) Nai LAMAR - 05/16/2025 10:34 AM EDT This order has been auto-finalized and does not contain a result. us File Room Provider IMG DIGITIZE FILMS Final Resu lt BRIANDA [phone] from Last 3 Months Insurance [address] [place] [address] [facility] MEDICARE Advance Directives * Full Code (Latest Code Status on File) Date Activated Date Inactivated Comments 01/01/2023 2:24 PM 05/31/2025 11:05 AM * Full Code Date Activated Date Inactivated Comments 01/01/2023 6:51 AM 01/01/2023 2:24 PM Care Teams Wind Turbine Engineer Relationship Specialty Start Date End Date Pcp, No [address] [place] [address] PCP - General 05/02/23 Yael Islas, LIVIA [address] [address] Oncology Nurse Navigator 05/05/23
--- OUTSIDE RECORDS SUMMARY | 2025-06-23 10:45 | XMS_ITS | Encounter Summary ---
Author Organization [facility] Address [address] [place] [address] Care Team Providers Care Sql Database Administrator Name Role Phone Stalin Dupree MD Primary Care Provider [phone] Pcp, No Primary Care Provider Unavailabl e Carrier, Yael BHAKAT Unavailable [phone] Encounter Details Date Type Department Care Team (Late st Contact Info) Description 07/09/2022 Scanned Document [facility] Urologic Surgery [address] [address] Stalin Dupree MD [address] [place] [id number] Social History Tobacco Use Types Packs/Day Years [...] on filedocumented in this encounter Care Teams Sql Database Administrator Relationship Specialty Start Date End Date Stalin Dupree MD [address] [place] [address] PCP - General Internal Medicine 08/15/22 05/01/23 Pcp, No [address] [place] [address] PCP - General 05/02/23 Carrier, LIVIA Conley [address] [address] Oncology Nurse Navigator 05/05/23 documented as of this encounter
--- OUTSIDE RECORDS SUMMARY | 2025-06-23 10:45 | XMS_ITS | Encounter Summary ---
Author Organization [facility] Address [address] [place] [address] Care Team Providers Care Assistant Broker Name Role Phone Stalin Dupree MD Primary Care Provider [phone] Pcp, No Primary Care Provider Unavailabl e Carrier, Yael BHAKTA Unavailable [phone] Encounter Details Date Type Department Care Team (Late st Contact Info) Description 06/04/[address] [facility] Urologic Surgery [address] [address] Stalin Dupree MD [address] [place] [address] Social History Tobacco Use Types Packs/Day Years [...] on filedocumented in this encounter Care Teams Assistant Broker Relationship Specialty Start Date End Date Stalin Dupree MD [address] [place] [address] PCP - General Internal Medicine 08/15/22 05/01/23 Pcp, No [address] [place] [address] PCP - General 05/02/23 Carrier, LIVIA Conley [address] [address] Oncology Nurse Navigator 05/05/23 documented as of this encounter
--- OUTSIDE RECORDS SUMMARY | 2025-06-23 10:45 | XMS_ITS | Encounter Summary ---
Author Organization [facility] Address [address] [place] [address] Care Team Providers Care Poundmaster Name Role Phone Denise Edgar MD Primary Care Provider Reason for Visit * Reason Onset Date Comments Med Refill 06/21/2025 Encounter Details Date Type Department Care Team ([facility] Contact Info) Description 06/21/2025 Telephone [facility] [address] [place] [address] Nathaniel Alba MD [address] [place] [address] [address] [place] [phone] Social History Tobacco Use Types Packs/Day Years [...] on file documented as of this encounter Ordered Prescriptions Prescription Sig Dispense Quantity Refills Last Filled Start Date End Date amLODIPine (NORVASC) 5 mg tablet Take 1 tablet (5 mg total) by mouth 1 (one) time each day. 90 each 1 06/21/2025 documented in this encounter Progress Notes * Stacy Guzman MA - 06/21/2025 11:11 AM EST sent * Paco Guzman - 06/21/2025 10:57 AM EST Patient is wanting to refill his amlodipine 5mg, take one tab once a day. [facility]. Please call him as well, he had questions on this medication. documented in this encounter Plan of Treatment Upcoming Encounters Date Type Department Care Team (Late st Contact Info) Description 07/30/2025 Telephone [facility] [address] [facility] [address] [place] [address] Nathaniel Yin MD [address] [place] [address] 09/06/2025 9:20 AM EST Office Visit [facility] [address] [facility] [address] [place] [address] Nathaniel Alba MD [address] [place] [address] [address] [place] [address] documented as of this encounter Goals Goal Patient Goal Type Associated Problems [...] an increased atmospheric pressure Anastasiia Brambila RN documented as of this encounter Visit Diagnoses Not on filedocumented in this encounter Discontinued Medications Medication Sig Discontinue Reason Start Date End Da te amLODIPine (NORVASC) 5 mg tablet Take 1 tablet (5 mg total) by mouth 1 (one) time each day. Reorder 01/05/2025 06/21/2025 documented as of this encounter Additional Health Concerns Active Problems Noted Date [...] oxygen at an increased atmospheric pressure 07/28/2024 documented as of this encounter Care Teams Poundmaster Relationship Specialty Start Date End Date Denise Edgar MD [address] [place] [address] [place] [address] PCP - General Internal Medicine 01/05/25 documented as of this encounter
--- OUTSIDE RECORDS SUMMARY | 2025-06-23 10:45 | XMS_ITS | Encounter Summary ---
Author Organization [facility] Address [address] [place] [address] Care Team Providers Care Senior Auditor Name Role Phone Stalin Dupree MD Primary Care Provider [phone] Pcp, No Primary Care Provider Unavailabl e Carrier, Yael BHAKTA Unavailable [phone] Encounter Details Date Type Department Care Team (Late st Contact Info) Description 07/09/2022 Scanned Document [address] [place] [phone] Stalin Dupree MD [address] [place] [address] Social History Tobacco Use Types Packs/Day Years [...] filedocumented in this encounter Care Teams Senior Auditor Relationship Specialty Start Date End Date Stalin Dupree MD [address] [place] [address] PCP - General Internal Medicine 08/15/22 05/01/23 Pcp, No [address] [place] [address] PCP - General 05/02/23 Carrier, LIVIA Conley [address] [address] Oncology Nurse Navigator 05/05/23 documented as of this encounter
--- OUTSIDE RECORDS SUMMARY | 2025-06-23 10:45 | XMS_ITS | Encounter Summary ---
Author Organization [facility] Address [address] [place] [address] Care Team Providers Care High School Sports Coach Name Role Phone Stalin Dupree MD Primary Care Provider [phone] Pcp, No Primary Care Provider Unavailabl e Carrier, Yael BHAKTA Unavailable [phone] Encounter Details Date Type Department Care Team (Late st Contact Info) Description 08/09/2022 Scanned Document [facility] Urologic Surgery [address] [place] [phone] Arnaud Cho MD [address] [facility] [address] [place] [address] Social History Tobacco Use Types Packs/Day Years [...] on filedocumented in this encounter Care Teams High School Sports Coach Relationship Specialty Start Date End Date Stalin Dupree MD [address] [place] [address] PCP - General Internal Medicine 08/15/22 05/01/23 Pcp, No [address] [place] [address] PCP - General 05/02/23 Yael Islas RN [address] [address] Oncology Nurse Navigator 05/05/23 documented as of this encounter
[2025-06-23 10:47] LABS: WBC ABN SCTR FOR CBC 1
[2025-06-23 10:58] LABS: Alanine Aminotransferase 17 U/L (0-40); Albumin Level 3.8 g/dL (3.5-5.0); Alkaline Phosphatase 99 U/L (39-117); Anion Gap 11 (12-20); Aspartate Amino Transferase 28 U/L (5-37); Blood Urea Nitrogen 37 mg/dL (9-16); Calcium 9.2 mg/dL (8.4-10.2); Carbon Dioxide 22 mmol/L (22-29); Chloride 110 mmol/L (96-108); Estimated Glomerular Filt Rate 27; Potassium 4.2 mmol/L (3.3-5.1); Sodium 139 mmol/L (135-145); Total Protein 7.6 g/dL (6.5-8.0)
[2025-06-23 11:16] LABS: Ferritin 55 ng/mL (20-250)
[2025-06-23 11:23] LABS: Band Neutrophils Percent 0 % (3-5); Eosinophils Percent Manual 2 % (0-4); Lymphocytes Percent Manual 21 % (20-40); Monocytes Percent Manual 10 % (2-11); Neutrophils Percent Manual 67 % (45-73)
[2025-06-23 11:24] LABS: Ovalocytes 1+ (5-14) /OIF; Polychromasia 1+ (0-2) /OIF; RBC Morphology NOTED
[2025-06-23 11:25] LABS: Eosinophils Absolute Manual 0.1 X10*3/uL (0.0-0.4); Lymphocytes Absolute Manual 1.3 X10*3/uL (1.2-4.9); Monocytes Absolute Manual 0.6 X10*3/uL (0.1-1.2); Neutrophils Absolute Manual 4.0 X10*3/uL (2.0-8.3); White Blood Count 6.0 X10*3/uL (4.8-10.8)
[2025-06-23 15:04] LABS: NRBC Pct Auto 0.0 /100WBC (0.0-0.2)
[2025-06-23 15:05] LABS: NRBC Abs Auto 0.000 X10*3/uL (0.0-0.012)
== END 2025-06-23 09:34 | disposition home or self-care (01) ==
LOC: HO.10HDL 09:33
PROVIDERS: Visit Provider Internal Medicine
DX: N18.9 Chronic kidney disease, unspecified (principal); R31.9 Hematuria, unspecified; R42 Dizziness and giddiness
CPT/HCPCS: 36415; 80053; 82728; 85007; 85027